=== PATIENT | male | born 1955 | race Caucasian/White ===

== ENCOUNTER → 2021-11-13 07:45 | Outpatient (CLI) | payer MEDICARE, SELFPAY ==
--- NOTE | ~2021-11-13 | US_ITS ---
EXAMINATION: US right upper quadrant EXAM DATE: 11/13/2021 08:08 INDICATION: Right upper quadrant abdominal pain. TECHNIQUE: Multiple grayscale and Doppler images of the abdomen right upper quadrant were obtained (b y a technologist who performed the scan) and subsequently reviewed. There is no prior study for maribell nunn. FINDINGS: The pancreatic head and body are normal in appearance. The pancreatic tail is not visualized. The l iver has normal echogenicity and contour. There are no focal liver lesions identified. There is no evidence of intrahepatic biliary duct dilation. Portal venous flow was seen in the hepatopedal, nor mal direction and has normal Doppler waveform. No right-sided hydronephrosis. Common bile duct measures 3 mm, which is normal. The gallbladder wall is normal in thickness, in cont racted state. No sonographic evidence of pericholecystic fluid. There is no cholelithiases. Technol ogist performing exam reports patient did not demonstrate sonographic Heck's sign. Please note jair t this sign is less reliable in patients who have received pain medication. IMPRESSION: Contracted, otherwise unremarkable gallbladder. Reviewed, dictated and finalized at location B.
== END ==
PROVIDERS: PCP Student in an Organized Health Care Education/Training Program; Visit Provider Student in an Organized Health Care Education/Training Program
DX: R10.11 Right upper quadrant pain (principal)
CPT/HCPCS: 76705

== ENCOUNTER → 2021-11-21 12:51 | Outpatient (CLI) | payer MEDICARE, SELFPAY ==
--- NOTE | ~2021-11-21 | CT_ITS ---
EXAMINATION: CT abdomen pelvis w con EXAM DATE: 11/21/2021 13:19 INDICATION: RUQ pain, leukocytosis. TECHNIQUE: Spiral CT of the abdomen and pelvis was performed following intravenous injection of 100 m L Omnipaque 350. Axial, coronal and sagittal images of the abdomen and pelvis were reviewed. The do se-length product (DLP) for this examination was 560.68 mGy-cm. The exposure was tailored according to patient size (auto mA exposure control), and iterative reconstruction (ASIR) was used as additiona l dose reduction technique. There is no prior study for comparison. FINDINGS: The liver, spleen, adrenal glands and pancreas are unremarkable. The gallbladder is contra cted but otherwise unremarkable. Portal and splenic veins are patent. Kidneys enhance symmetrically . Several left renal cyst measuring up to 2 cm. There is no hydronephrosis. The prostate is unremar kable. The bladder is unremarkable. There is no retroperitoneal or pelvic lymphadenopathy. The appendix is normal. There is moderate colonic diverticulosis. There is no adjacent inflammatory change to suggest diverticulitis. The stomach and small bowel are unremarkable. There is expected a mount of colonic stool. No free intraperitoneal gas. The heart is normal in size. There are no p ericardial or pleural effusions. The lung bases are unremarkable. There is mild lumbar levoscoliosi s. IMPRESSION: 1. Contracted, otherwise unremarkable gallbladder. No acute findings. 2. Moderate colonic diverticulosis Reviewed, dictated and finalized at location A.
[2021-11-21 13:08] LABS: Estimated Glomerular Filt Rate > 60
== END ==
PROVIDERS: PCP Student in an Organized Health Care Education/Training Program; Visit Provider Student in an Organized Health Care Education/Training Program
DX: R10.11 Right upper quadrant pain (principal); D72.829 Elevated white blood cell count, unspecified; K57.30 Diverticulosis of large intestine without perforation or abscess without bleeding
CPT/HCPCS: 74177; Q9967

== ENCOUNTER 2022-12-22 07:15 | Outpatient (CLI) | payer MEDICARE, SELFPAY ==
--- NOTE | ~2022-12-22 | NM_ITS ---
EXAMINATION: NM bone scan whole body DATE: 12/22/2022 11:54 INDICATION: Malignant neoplasm of prostate TECHNIQUE: 5.7 mCi Tc-99m HDP was administered intravenously. Delayed whole-body scintigrams were ob tained. COMPARISON: CT abdomen pelvis dated 11/21/2021. No more recent imaging available for comparison. FINDINGS: Likely degenerative joint centered uptake at the bilateral sternoclavicular and acromioclavicular antonino nts, right 12th costovertebral articulation and at the right ankle. Mild likely enthesopathic uptake along the bilateral greater trochanters. Relatively symmetric small foci of mild uptake along the lef t and right sides of the sternum likely at the costosternal articulations. No other suspicious foci o f abnormal bone uptake to suggest metastatic disease. IMPRESSION: 1. No lesion suspicious for metastatic disease. Reviewed, dictated and finalized at location A.
== END 2022-12-22 07:16 | disposition home or self-care (01) ==
PROVIDERS: PCP Student in an Organized Health Care Education/Training Program; Visit Provider Urology
DX: C61 Malignant neoplasm of prostate (principal)
CPT/HCPCS: 78306; A9503

== ENCOUNTER 2023-01-30 12:29 | Outpatient (CLI) | payer MEDICARE, SELFPAY ==
--- NOTE | ~2023-01-30 | PE_ITS ---
EXAMINATION: PET_PETPSMAST_PT DATE: 01/30/2023 15:10 INDICATION: Prostate cancer. TECHNIQUE: 8.993 mCi of piflufolastat F-18 was administered intravenously. Low dose computed tomograp hy (CT) images were acquired from the base of the brain to the proximal thighs for attenuation correc tion and anatomic localization. Automated exposure control was employed. Dose-length product (DLP) wa s 481 mGy-cm. Positron emission tomography (PET) images were acquired in the same distribution. COMPARISON: CT abdomen and pelvis 11/21/2021, bone scan 12/22/2022 FINDINGS: Head/neck: There are no pathologically enlarged lymph nodes. Chest: There is mild atelectasis bilaterally. A calcified left lung nodule and calcified left hilar a nd mediastinal lymph nodes are consistent with old granulomatous disease. No pleural effusion. The he art size is normal. There are coronary artery calcifications. No pericardial effusion. Abdomen/pelvis/proximal thighs: Calcifications in the liver and spleen are consistent with old granul omatous disease. The gallbladder is contracted. The pancreas, adrenal glands, and right kidney are no rmal. There are cysts in left kidney measuring up to 2.2 cm. There is a 1 mm stone in left kidney. Th e prostate is mildly enlarged. There is increased activity in the prostate, worst in the left periphe ral zone with maximum SUV of 23.5. There is diverticulosis of the colon without evidence of diverticu litis. There are no dilated loops of bowel. The appendix is normal. There are no pathologically enlar ged lymph nodes. There is increased activity in a normal-sized left obturator node with maximum SUV o f 7.7. There is no free intraperitoneal fluid. There is no osseous malignancy. IMPRESSION: 1. Mildly enlarged prostate with increased activity, worst in the left peripheral zone, consistent wi th primary malignancy. 2. Normal sized left obturator lymph node with increased activity, consistent with metastatic disease . Reviewed, dictated and finalized at location A. IMPRESSION: 1. Mildly enlarged prostate with increased activity, worst in the left peripher al zone, consistent with primary malignancy. 2. Normal sized left obturator lymph node with increased activity, consistent w ith metastatic disease.
== END 2023-01-30 12:30 | disposition home or self-care (01) ==
PROVIDERS: PCP Student in an Organized Health Care Education/Training Program; Visit Provider Radiology Radiation Oncology
DX: C61 Malignant neoplasm of prostate (principal); N40.0 Benign prostatic hyperplasia without lower urinary tract symptoms
CPT/HCPCS: 78815; A9595

== ENCOUNTER 2023-02-27 06:33 | Outpatient (CLI) | payer MEDICARE, SELFPAY ==
--- NOTE | ~2023-02-27 | MR_ITS ---
EXAMINATION: MR pelvis wo/w con DATE: 02/27/2023 07:58 INDICATION: TECHNIQUE: MRI of the pelvis was performed without and with 15 mL Multihance intravenous contrast. Fu field sequences of the pelvis included axial and coronal T2-weighted SS FSE, axial, sagittal and co hermelinda 2D FIESTA, axial 2D FIESTA FS, axial SSFSE-IR ANAMARIA, axial dual-echo T1-weighted FSPGR, axial and coronal T1 weighted LAVA, 3D axial T2 Cube, axial diffusion-weighted SE with apparent diffusion coef ficient (ADC) maps. Postcontrast sequences included a time course axial T1-weighted LAVA and sagittal and coronal T1-weighted LAVA. COMPARISON: None. FINDINGS: Prostatomegaly measuring 4.5 similar craniocaudally and 4.6 x 3.7 cm in maximal transaxial dimensions . There is a small region along the midline measuring 2.0 cm craniocaudally and up to 1.3 cm in maxim al [id number] dimensions with no discernible macroscopic T1 hyperintense fat signal between the po sterior margin of the inferior half of the prostate and the anterior wall of the rectum. There is how ever an intact smooth thin low signal intensity plane between the two which does not enhance on postc ontrast imaging. Seminal vesicles appear normal and symmetric. No pathologically enlarged pelvic or i nguinal adenopathy. Bladder is normal. Severe lower lumbar spondylosis. Moderate bilateral sacroiliac osteoarthritis. No suspicious enhancing or T1 hypointense bone lesions identified to suggest metasta tic disease. IMPRESSION: 1. Prostatomegaly consistent with provided history of prostate cancer. No evident metastatic disease. Reviewed, dictated and finalized at location A. IMPRESSION: 1. Prostatomegaly consistent with provided history of prostate cancer. No evide nt metastatic disease.
== END 2023-02-27 06:34 | disposition home or self-care (01) ==
PROVIDERS: PCP Student in an Organized Health Care Education/Training Program; Visit Provider Radiology Radiation Oncology
DX: C61 Malignant neoplasm of prostate (principal)
CPT/HCPCS: 72197; A9577

== ENCOUNTER 2023-07-02 06:50 | Day surgery (SDC) | payer MEDICARE, SELFPAY ==
[2023-06-25 11:00] VITALS: BMI 22.6
[2023-07-02] VITALS (8 sets, daily range): BP systolic 108–136; BP diastolic 57–72; PULSE 62–80; RESP 16–20; TEMP 36.4; O2SAT 97–99
--- NOTE | 2023-07-02 07:27 | WPDHPUPDATE1 ---
History and Physical Update Update Date/Time: 07/02/23 07:27 History and Physical has been reviewed, including an updated exam of the patient. There are NO changes in the patient's condition. Risks, benefits, and alternatives have been discussed and questions answered. Patient agrees to proceed with procedure.
[2023-07-02] MEDS: LIDO 1%/EPINEPHRINE 1:100,000 50 ML VIAL 15 ML INFILTRATE (08:51)
[2023-07-02] MEDS: BUPivacaine HCL 0.5% 10 ML AMP 15 ML INFILTRATE (08:51)
[2023-07-02] MEDS: BACITRACIN OP OINT 3.5 GM TUBE 1 APPLIC XX (08:57)
--- NOTE | 2023-07-02 09:16 | W.PM.PROC2 ---
Procedure Note - Detailed Date of Procedure 07/02/23 Pre-op Diagnosis Back Cyst and Left Buttock Skin Lesion Post-op Diagnosis Same Procedure Performed Excision of mid upper back skin epidermal inclusion cyst with 5cm intermediate layered wound closure. Excision of left buttock skin lesion with 2cm intermediate layered wound closure Surgeon Jay Ramirez MD [employer] Tyra SINGH student Anesthesia Local Indications Patient is a 67-year-old gentleman presented with a enlarging epidermal inclusion cyst in the midback region as well as a skin lesion on the medial aspect of his left buttock. He presents now for excision of both lesions. Findings The back cyst appeared to be consistent with a sebaceous cyst. It measured 4x2x1.5cm. The left buttock skin lesion measured 1x0.5x0.5cm. Intermediate layer skin closure for the back cyst was 5cm and intermediate layered wound closure for the buttock incision was 2cm. Description of Procedure After informed consent was obtained patient brought to the room was placed prone on the operating table. The area the mid upper back and medial left buttock region was then prepped and draped in usual sterile fashion. A time-out was then performed correctly identifying the patient as well as procedures to be performed. Site markings were verified. No antibiotics were given perioperatively. I then proceeded to anesthetize both areas 1% lidocaine mixed with 0.5% Marcaine with some epinephrine. I then started to excise off the mid back cyst initially. A longitudinal elliptical incision was made over the cyst wall utilizing a scalpel. Then with very careful sharp Iris scissor dissection I proceeded to shell out the wall of the cyst from the subcutaneous tissues surrounding it. Once I was down into the subcutaneous tissues be on the cyst wall I then proceeded to excise off the tissue with electrocautery. The specimen measured 4x2x1.5cm. The cyst wall which was non rubber ruptured and the attached ellipse of skin were sent to pathology for examination. I then achieved hemostasis in incision utilizing the cautery. The incision was then irrigated sterile saline solution. An intermediate layered wound closure was then performed. Interrupted 3-0 Vicryl sutures were placed in the subcutaneous tissues to close the space. 3-0 Vicryl deep dermal sutures were then placed as well superficially. The skin edges were then approximated utilizing a interrupted 3-0 nylon sutures placed in a vertical mattress fashion. The length of the intermediate layered wound closure on the back measured 5cm. The incision was then cleaned and then antibiotic ointment and a sterile dressing was applied. I then turned my attention to excising up the skin lesion on the left medial buttock. The area had already been anesthetized as noted above. A transverse elliptical incision was then made with a scalpel deeply down through the dermis of the skin. As the lesion was very small I completed the excision of the skin lesion and a small portion subcutaneous tissues exclusively with scalpel dissection. The specimen measured 1x0.5x0.5cm. It was sent to pathology for examination. Hemostasis was achieved in the incision electrocautery. It was then irrigated sterile saline solution. Interrupted 3-0 Vicryl sutures were used in the deeper subcutaneous tissues to close the space. The skin edges were then approximated utilizing a running subcuticular 4-0 Monocryl suture. The length of the intermediate layered skin closure on the buttock was 2cm. The incision was then cleaned the skin glue was applied. The patient tolerated the procedure well no complications. All sponges, needles, and instrument counts were correct at the end procedure. EBL was _5__cc. The patient was awakened and taken to recovery in stable and satisfactory condition. Implants None Estimated Blood Loss 5 Drains No Packing No Pathology Yes ( Back cyst and le
== END 2023-07-02 09:25 | disposition home or self-care (01) ==
PROVIDERS: PCP Student in an Organized Health Care Education/Training Program; Visit Provider Surgery
PROC: (CPT 21931; principal; 2023-07-02 08:30)
DX: R22.2 Localized swelling, mass and lump, trunk (principal)
CPT/HCPCS: 21931; 21930

== ENCOUNTER 2023-07-02 09:19 | Outpatient (NON) | payer MEDICARE, SELFPAY | END 2023-07-02 09:20 | disposition home or self-care (01) | PROVIDERS: PCP Student in an Organized Health Care Education/Training Program; Visit Provider Surgery | DX: L82.1 Other seborrheic keratosis (principal) | CPT/HCPCS: 88305 ==

== ENCOUNTER 2023-10-01 08:25 | Outpatient (CLI) | payer MEDICARE, SELFPAY ==
--- NOTE | ~2023-10-01 | MR_ITS ---
EXAMINATION: MR pelvis wo/w con DATE: 10/01/2023 09:45 INDICATION: Prostate cancer metastatic to intrapelvic lymph node. TECHNIQUE: Magnetic resonance imaging (MRI) of the pelvis was performed without and with 15 mL MultiH ance intravenous contrast. COMPARISON: Pelvis MRI 02/27/2023, PET CT 01/30/2023 FINDINGS: The prostate is normal in size. There is diverticulosis of the colon without evidence of diverticulit is. There are no pathologically enlarged lymph nodes. There is no free intraperitoneal fluid. There i s diffuse bladder wall thickening, likely secondary to chronic outlet obstruction. There is no osseou s metastatic disease. There is severe lumbar spondylosis. IMPRESSION: 1. No evidence of metastatic disease. Reviewed, dictated and finalized at location A. [employer]
== END 2023-10-01 08:26 | disposition home or self-care (01) ==
PROVIDERS: PCP Student in an Organized Health Care Education/Training Program; Visit Provider Urology
DX: C61 Malignant neoplasm of prostate (principal)
CPT/HCPCS: 72197; A9577

== ENCOUNTER 2024-12-21 12:19 | Outpatient (CLI) | payer MEDICARE, SELFPAY ==
--- NOTE | ~2024-12-21 | DEXA_ITS ---
Bone Density Report Name: HUNTER COLÓN Age: 68 Sex: Male Ethnicity: White Date of : 1955 Indication: screening for osteoporosis; height loss; cancer; Referring Provider: IDALMIS KRISHNA Study: Bone densitometry was performed. Exam Date: December 21, 2024 Accession number: [id number] Bone Density: Region BMD T-score Z-score Classification AP Spine(L1-L4) 0.812 -2.5 -1.6 Osteoporosis Femoral Neck (Left) 0.775 -1.1 0.1 Osteopenia Total Hip (Left) 0.898 -0.9 -0.2 Normal Femoral Neck (Right) 0.714 -1.6 -0.4 Osteopenia Total Hip (Right) 0.876 -1.0 -0.3 Normal Total Hip Mean 0.887 -1.0 -0.3 Normal World Health Organization criteria for BMD impression classify patients as: Normal (T-score at or above -1.0), Osteopenia (T-score between -1.0 and -2.5), or Osteoporosis (T-score at or below -2.5). 10-year Fracture Risk: FRAX not reported because: Some T-score for Spine Total or Hip Total or Femoral Neck at or below -2.5 Clinical Information Provided by Patient: Smokes Has used the following medications: Vitamin D, Calcium Has the following medical conditions: Cancer Patient maximum height was 71 Drinks caffeinated beverages Impression: The patient has osteoporosis, based on the Total Spine T-score. The patient has risk factors, including: smoking. Discussion: INCREASED RISK OF FRACTURE. BONE DENSITY IS UNDESIRABLY LOW AT ONE OR MORE SKELETAL SITES, CONSISTENT WITH OSTEOPOROSIS. This patient's lowest T-score meets the World Health Organization's (WHO) criteria for osteoporosis at one or more sites (T-score -2.5 or below). In untreated patients, the risk of osteoporotic fracture increases approximately two-fold for each 1.0 SD decrease in T-score. Low bone density is not the only risk factor for fracture; also consider factors such as patient's age, frailty or poor health, risk of falling, risk of injury, previous osteoporotic fracture, family history of osteoporosis, cigarette smoking, low body weight, etc. Not everyone with low bone mineral density has osteoporosis; osteomalacia and other metabolic bone disorders should also be considered. Patients who have osteoporosis should be evaluated for specific diseases and conditions (secondary causes) that may cause or contribute to bone loss. The National Osteoporosis Foundation (NOF) recommends pharmacologic intervention for men with BMD at this level (a T-score of -2.5 or below). The patient should follow a healthful lifestyle (good nutrition with adequate calcium and vitamin D, and appropriate weight-bearing exercise). Follow-Up: Consider repeating this study in 2 years to reassess this patient's status, or sooner if there is some new clinical indication. Reported by: HARMEET on 12/21/2024 12:55:00 PM. Reviewed, dictated and finalized at location A.
--- OUTSIDE RECORDS SUMMARY | 2024-12-21 12:34 | XMS_ITS | Clinical Summary ---
Author Organization [place] [id number] [facility] Address [address] [place] [address] Care Team Providers Care Sales And Operations Trainee Name Role Phone Jesus Miller Primary Care Provide r Allergies No known active allergies Medications acetaminophen (TYLENOL) 325 mg tabletIndicatio ns:Fever,Pain Take 2 tablets (650 mg total) by mouth every 4 (four) hours as needed for pain 30 tablet 9 Active OXcarbazepine (TRILEPTAL) 300 mg tablet Take 1 tablet (300 mg total) by mouth 2 (two) times a day 60 tablet 11 9 Active metFORMIN (GLUCOPHAGE) 1,000 mg tabletIndicatio ns:type 2 diabetes mellitus Take 1,000 mg by mouth 2 (two) times a day with meals Active multivitamin with minerals tabletIndicatio ns:Mineral Deficiency Prevention,Arcelia min Deficiency Prevention Take 1 tablet by mouth every morning Active famotidine (PEPCID) 20 mg tabletIndicatio ns:gastroesopha geal reflux disease Take 20 mg by mouth 2 (two) times a day as needed for heartburn Active docusate sodium (COLACE) 100 mg capsuleIndicati ons:constipatio n,Stool Softener Take 1 capsule (100 mg total) by mouth 2 (two) times a day 30 capsule 9 Active Additional Information Patient not taking.Reported on 02/23/2020 oxyCODONE (ROXICODONE) 5 mg immediate release tabletIndicatio ns:Pain Take 1 tablet (5 mg total) by mouth every 4 (four) hours as needed for pain 25 tablet 9 Active Additional Information Patient not taking.Reported on 02/23/2020 sildenafiL (VIAGRA) 100 mg tablet TAKE 1/2 TO 1 TABLET BY MOUTH DAILY NEEDED FOR ERECTILE DYSFUNCTION 3 Active gabapentin (NEURONTIN) 300 mg capsule Take 1 capsule (300 mg total) by mouth daily as needed Active Active Problems Problem Noted Date Diagnosed Date Prostate cancer 02/08/2023 Cancer Staging:Clinical stage from 12/01/2022:Stage ORLY(cT2b, cN1, cM0, PSA: 4.6, Grade Group: 5) - Signed by Uriel Liang MD on 02/09/2023 BMI 25.0-25.9,adult 08/22/2019 Normocytic anemia 05/18/2019 Brain abscess 04/27/2019 Assessment & Plan (04/27/2019 1:56 PM CDT): - Underwent brain abscess drainage with cultures showing Streptococcus intermedius, thomson susceptible. - Source unclear: CT face without signs of sinus or dental infection. Contiguous spread from sinus, oropharyngeal and ear/mastoid ruled out. - Currently on ceftriaxone and metronidazole with clinical improvement. - Patient will need to complete at least 6 weeks of IV antibiotic therapy - Will need a repeat MRI to evaluate the abscess prior to stopping, MRI scheduled on 05/19/[address] Michael. Will reach out to Dr. Michael's office to see if they are comfortable with us moving up the MRI one week. If the MRI shows resolution of abscess and the patient has received 6 weeks of Ceftriaxone and Flagyl then we will stop antibiotics. - Continue Ceftriaxone 2 grams IV every 12 hours and Metronidazole 500 mg po every 6 hours until at least 05/12/19, cannot stop until repeat MRI is reviewed. Drug-induced insomnia 04/27/2019 Assessment & Plan (04/27/2019 1:55 PM CDT): - Per the facility's med list the patient is on 4 mg BID of dexamethasone - Per a call note from Dr. Michael's office from 04/20/19, the patient should be on 2mg bid and taper. 2mg bid x 1 week, 1mg tid in one week, 1mg bid the next week, 1mg daily for a week, then .5 mg daily for a week, then stop. - Will clarify with the facility that he is on the correct taper. Encounter for long-term (current) use of antibio tics 04/01/2019 Assessment & Plan (04/27/2019 1:57 PM CDT): Ceftriaxone: Monitoring weekly CBC and CMP for possibility of rash/eosinophilia and pseudocholelithiasis (gallbladder sludging) or hepatitis. Rarely, ceftriaxone can cause drug fever, hepatitis, neutropenia, thrombocytopenia, hemolytic anemia, cholecystitis, or interstitial nephritis. Metronidazole is associated with GI intolerance, metallic taste, headaches, dark urine. Rarely, it can be associated with seizures, encephalopathy, aseptic meningitis, Wilson-Ricky syndrome, peripheral neuropathy, insomnia, and a disulfiram-like reaction with alcohol. Patients are advised to avoid alcohol while taking the medication. Assessment & Plan (04/04/2019 6:15 PM CDT): Ceftriaxone: Monitoring weekly CBC and CMP for possibility of rash/eosinophilia and pseudocholelithiasis (gallbladder sludging) or hepatitis. Rarely, ceftriaxone can cause drug fever, hepatitis, neutropenia, thrombocytopenia, hemolytic anemia, cholecystitis, or interstitial nephritis. 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 male with history of DM2 who presented with headaches, fever and confusion and found to have rim-enhancing lesion on the brain consistent with brain abscess. Had LP at OSH that showed pleocytosis and elevated protein level, with cultures NGTD. Was transferred to [facility] where he had brain abscess drainage with cultures showing Streptococcus intermedius, which is thomson susceptible. CT face without signs of sinus or dental infection. Unclear source of hematogenous spread. Contiguous spread from sinus, oropharyngeal and ear/mastoid ruled out. Currently on ceftriaxone and metronidazole. Slow clinical improvement. Afebrile with normal WBC. Will favor terminal gauger duration of minimal of 8 weeks. Plan: - c/w ceftriaxone, metronidazole. Given slow to clinically respond will need duration of minimum of 8 weeks. - ID will follow peripherally. Please call with any questions. If plans for discharge, please call before discharge for final recommendations. Chronic bilateral low back pain without sciatica 08/23/2018 Type 2 diabetes mellitus wit hout complication, without long-term current use of insulin 08/23/2018 Immunizations Immunization Administration Dates Next Due Flucelvax Influenza Quad 06/01/2018 Influenza, Quadrivalent, Spl it, Intramuscular 08/17/2016 Influenza, Quadrivalent, Spl it, Preservative Free, Intramuscular 04/29/2016 Influenza, Trivalent, Cell Culture-based MDCK, Preservative Free, Antibiotic Free, Intramuscular 06/01/2018,05/21/2017 Influenza, Trivalent, High D ose, Split, Preservative Free, Intramuscular 05/18/2019 Influenza, Trivalent, IM (MDV) 05/22/2014 Influenza, Trivalent, Preser vative Free, Intramuscular 05/22/2015 Influenza, Unspecified 08/17/2016,2015,05/22/2015,05/22 Pneumococcal Conjugate PCV 13 05/18/2019 Surgical History Surgery Date Site/Laterality Comments TONSILLECTOMY 08/17/1965 - 08/16/1966 Bilateral BRAIN SURGERY 03/30/2019 Brain Abscess CRANIOTOMY 03/30/2019 REDUCTION OF TORSION OF TESTIS Medical History Medical History Date Comments Diabetes mellitus (HCC) Type II Vertigo Type 2 diabetes mellitus (HCC) Brain abscess 03/2019 Chest pain Atypical. Pt sta kiana stress related . Rare occurrence. SOB (shortness of breath) Dyslipidemia diet controlled Prostate cancer (HCC) Family History Medical History Relation Name Comments Cancer Father Early Father Cancer Mother Cancer Paternal Grandmother Breast cancer Sister Cancer Sister Relation Name Status Comments Father Mother Paternal Grandfather Paternal Grandmother Sister Social History Tobacco Use Types Packs/Day Years Used Date Smoking Tobacco: Never Smokeless Tobacco: Never Tobacco Cessation:Counseling Given: Not Answered Alcohol Use Standard Drinks/Week Comments Not Currently 0 (1 standard drink = 0.6 oz pur e alcohol) AUDIT-C Answer Date Recorded Q1: How often do you have a drink containing alc ohol? Never 02/09/2023 Average Number of Drinks Not on file 023 Frequency of Binge Drinking Not on file 01/16 Sex and Gender Information Value Date Recorded Sex Assigned at Not on file Legal Sex Male 9:57 PM CDT Gender Identity Not on file Sexual Orientation Not on file Occupation Industry Job Start Date Job End Date Retired Not on file Not on file Not on file Obstetrics History Last Filed Vital Signs Vital Sign Reading Time Taken Comments Blood Pressure 113/62 02/09/2023 8:27 AM CDT Pulse 59 02/09/2023 8:27 AM CDT Temperature 36.7 C (98 F) 02/09/2023 8:27 AM CDT Respiratory Rate 18 02/09/2023 8:27 AM CDT Oxygen Saturation 97% 02/09/2023 8:27 AM CDT Inhaled Oxygen Concentration - - Weight 75.8 kg (167 lb) 02/09/2023 8:27 AM CDT Height 177.8 cm (5' 10 ) 02/09/2023 8:27 AM CDT Body Mass Index 23.96 02/09/2023 8:27 AM CDT Plan of Treatment Health Maintenance Due Date Last Done Comments Albumin Creatinine Ratio, Urine 1953 Colon Cancer Screening-Colonoscopy 1955 Depression Screening 1955 Hepatitis C Screening 1955 Dilated Eye Exam 1953 Foot Exam 1953 DTaP/Tdap/Td Vaccine (1 - Tdap) 1964 Hepatitis B Screening 12/30/1971 Abdominal Aortic Aneurysm (A AA) Screen 2018 Well Visit 65+ 2018 Hemoglobin A1C 12/13/2019 06/13/2019, 03/17, 03/30/2019 Lipid Panel 08/22/2023 08/22/2022, 06/17/2019 Fall Risk Assessment 02/10/2024 02/09/2023 eGFR 02/10/2024 02/09/2023 Covid-19 Vaccine (5 - 2023-2 5 season) 2024 03/06/2023, 05/23/2021, 11/04/2020, Additional history exists Influenza Vaccine (#1) 2024 , 05/18/2019, 06/01/2018, Additional history exists Pneumococcal vaccine 65+ Completed 07/03/2020, 09/2018 Zoster Vaccine Completed 07/03/2020, 04/17, 05/01/2020 Prostate Cancer Screening-PSA Discontinued 02/09/2023 Medical Devices Implanted Type Area Retail Loss Prevention Specialist Device Identifier Shelf Expiration Date Model / Serial / Lot Magaly Craniomaxillofacial [id number] Crete Neuro Iii 10mm Tab Craniomaxillofacial Low Profile - [id number] Implanted:Qty: 3 on 03/30/2019 by Marshall Michael MD at [facility] Magaly Craniomaxillofacial [id number] / / Wiggins Craniomaxillofacial [id number] Un3 1.5mm 4mm Self Drill Craniomaxillofacial Screw Bone - [id number] Implanted:Qty: 17 on 03/30/2019 by Marshall Michael MD at [facility] Magaly Craniomaxillofacial [id number] / / Integra Quick Keyciences Svetlana [id number] Duragen Plus 2x2in Patch Resorbable Suturable Cranial Dura Graft - [id number] Implanted:Qty: 1 on 06/17/2019 by Marshall Michael MD at [facility] Left: Brain Integra Lifesciences Svetlana [id number] / / Wiggins Craniomaxillofacial [id number] Crete Neuro Iii .4mm 2 Hole Low Profile Bar Tab - [id number] Implanted:Qty: 2 on 06/17/2019 by Marshall Michael MD at [facility] Left: Brain Magaly Craniomaxillofacial [id number] / / Wiggins Craniomaxillofacial [id number] Medpor 7mm Tab Low Profile Cover Eliezer Hole Titanium Sterile - [id number] Implanted:Qty: 1 on 06/17/2019 by Marshall Michael MD at [facility] Left: Brain Wiggins Craniomaxillofacial [id number] / / Magaly Craniomaxillofacial [id number] Crete Neuro 3 1.5mm 4mm Self Drill Axial Stability Screw Bone Latex Free - [id number] Implanted:Qty: 10 on 06/17/2019 by Marshall Michael MD at [facility] Left: Brain Wiggins Craniomaxillofacial [id number] / / Procedures Procedure Name Priority Date/Time Associated Diagnosis Comments EGFR Routine 02/09/2023 11:10 AM CDT Prostate cancer (HCC) PSA, TOTAL AND FREE Routine 02/09/2023 1 1:10 AM CDT Prostate cancer (HCC) LIPID PANEL STAT 06/17/2019 7:04 PM CDT POCT HEMOGLOBIN A1C Routine 06/13/2019 1 2:52 PM CDT from Last 3 Months or Most Recently Relevant to Health Maintenance Results * eGFR (02/09/2023 11:10 AM CDT) eGFR >90 90 - 130 mL/min/1. 73 m2 [facility] Comment: Interpretive Data Reference Interval Normal >/= 90 mL/min/1.73m2 Mildly decreased* 60 - 89 mL/min/1.73m2 Mildly to moderately decreased 45 - 59 mL/min/1.73m2 Moderately to severely decreased 30 - 44 mL/min/1.73m2 Severely decreased 15 - 29 mL/min/1.73m2 Kidney Failure < 15 mL/min/1.73m2 *Relative to young adult level Estimated glomerular filtration rate is determined by the 2020 CKD-EPI equation recommended by the National Kidney Foundation (A Unifying Approach to GFR Estimation: Recommendations of the NKF-ASK Task Force on Reassessing the Inclusion of Race in Diagnosing Kidney Disease, JASN 202). The CKD-EPI equation should not be used for patients with unstable renal function and has not been validated in children and those over 70. Current interpretive data was last reviewed 2021. Blood 02/09/2023 11:1 0 AM CDT 02/09/2023 11:40 AM CDT us Anjum Castro MD LAB BLOOD ORDERABLES F inal Result [facility] Department [place] [address] * (ABNORMAL) PSA, total and free (02/09/2023 11:10 AM CDT) PSA-free 0.6 ng/mL [facility] PSA-Total 6.2(H) <=4.5 ng/mL [facility] PSA-Free/Total Ratio 0.10 [facility] Comment: When Total PSA is in the range of 4.0-10.0 ng/mL: Probability of Cancer fPSA/tPSA ratio 50-59 years 60-69 years >or= 70 years < or = 0.10 49% 58% 65% 0.11 - 0.18 27% 34% 41% 0.19 - 0.25 18% 24% 30% > 0.25 9% 12% 16% ADDITIONAL INFORMATION The testing method is an electrochemiluminescence assay manufactured by [employer] and performed on the Modular or Nuria system. Values obtained with different assay methods or kits may be different and cannot be used interchangeably. Test results cannot be interpreted as absolute evidence for the presence or absence of malignant disease. Test Performed by: [place] [address] Beef Breaker: Joseluis Ford M.D. Ph.D.; CLIA# [id number] Blood 02/09/2023 11:1 0 AM CDT 02/09/2023 11:36 AM CDT us Anjum Castro MD LAB BLOOD ORDERABLES F inal Result [facility] Department [place] [address] * (ABNORMAL) Lipid panel (06/17/2019 7:04 PM CDT) Pathologist [facility] Cholesterol 156 30 - 199 mg/dL [facility] Comment: Interpretive Data Ages < or = 19 years Acceptable: <170 mg/dL Borderline high: 170-199 mg/dL High: >or= 200 mg/dL Ages > or = 20 years Desirable: <200 mg/dL Borderline high: 200-239 mg/dL High: >or= 240 mg/dL Literature References: 1. Expert Panel on Integrated Guidelines for Cardiovascular Health and Risk Reduction in Children and Adolescents. Pediatrics 2011;128:S213 2. NCEP Expert Panel. Circulation 2004;110:227 Current Interpretive Data was last revised on 2018. Triglycerides 123 <=149 mg/dL [facility] Comment: Interpretive Data Ages < or = 9 years Acceptable: <75 mg/dL Borderline high: 75-99 mg/dL High: >or= 100 mg/dL Ages 10 to 20 years Acceptable: <90 mg/dL Borderline high: 90-129 mg/dL High: >or= 130 mg/dL Ages > or = 20 years Desirable: <150 mg/dL Borderline high: 150-199 mg/dL High: 200-499 mg/dL Very high: >or= 499 mg/dL Literature References: 1. Expert Panel on Integrated Guidelines for Cardiovascular Health and Risk Reduction in Children and Adolescents. Pediatrics 2011;128:S213 2. NCEP Expert Panel. Circulation 2004;110:227 Current Interpretive Data was last revised on 2018. HDL 35(L) >=40 mg/dL [facility] Comment: Interpretive Data Ages < or = 19 years Acceptable: >45 mg/dL Borderline low: 40-45 mg/dL Low: <40 mg/dL Ages > or = 20 years Desirable: >or= 60 mg/dL Low: <40 mg/dL Literature References: 1. Expert Panel on Integrated Guidelines for Cardiovascular Health and Risk Reduction in Children and Adolescents. Pediatrics 2011;128:S213 2. NCEP Expert Panel. Circulation 2004;110:227 Current Interpretive Data was last revised on 2018. LDL, calculated 96 <=129 mg/dL [facility] Comment: Interpretive Data Ages < or = 19 years Acceptable: <110 mg/dL Borderline high: 110-129 mg/dL High: >or= 130 mg/dL Ages > or = 20 years Optimal: <100 mg/dL Near optimal: 100-129 mg/dL Borderline high: 130-159 mg/dL High: >160 mg/dL Literature References: 1. Expert Panel on Integrated Guidelines for Cardiovascular Health and Risk Reduction in Children and Adolescents. Pediatrics 2011;128:S213 2. NCEP Expert Panel. Circulation 2004;110:227 Current Interpretive Data was last revised on 2018. Non-HDL Cholesterol 121 mg/dL [facility] Comment: Interpretive Data Ages < or = 19 years Acceptable: <120 mg/dL Borderline high: 120-144 mg/dL High: >145 mg/dL Ages > or = 20 years When triglycerides are >200 mg/dL, Non-HDL cholesterol is a secondary target of therapy with treatment goals that are 30 mg/dL greater than the LDL cholesterol target. Literature References: 1. Expert Panel on Integrated Guidelines for Cardiovascular Health and Risk Reduction in Children and Adolescents. Pediatrics 2011;128:S213 2. NCEP Expert Panel. Circulation 2004;110:227 Current Interpretive Data was last revised on 2018. Chol/HDL ratio 4 [facility] Blood specimen (specimen) 06/17/2019 7:04 PM CDT 06/17/2019 7:22 PM CDT Marshall Michael MD LAB BLOOD ORDERABLES Final Result [facility] Department [place] [address] * (ABNORMAL) POCT hemoglobin A1c (06/13/2019 12:52 PM CDT) Hgb A1C, POC 6.8(H) 4.0 - 6.0 % [facility] Est Average Gluc POC 148 mg/dL [facility] Comment: The ADA recommends reporting an estimated Average Glucose (eAG) with all Hemoglobin A1c results using the equation derived from a study of 507 normal and diabetic adults. Minority populations were underrepresented and children were not included. (Diabetes Care 31:9514-7298, 2008). The eAG is not equivalent to a fasting glucose. Blood specimen (specimen) 06/13/2019 12:52 PM CDT 06/13/2019 12:52 PM CDT us Marshall Michael MD POINT OF CARE TEST ORDERABL ES Final Result [facility] Department [place] [address] from Last 3 Months or Most Recently Relevant to Health Maintenance [place] [place] [address] MEDICARE [facility] MEDICARE [facility] MEDICARE Advance Directives For more information, please contact: [phone] * Full Code (Latest Code Status on File) Date Activated Date Inactivated Comments 06/17/2019 6:30 PM 06/19/2019 5:32 PM * Full Code Date Activated Date Inactivated Comments 03/29/2019 10:36 PM 04/15/2019 11:13 PM Care Teams Sales And Operations Trainee Relationship Specialty Start Date End Date Jesus Miller DO PCP - General 05/12/19
--- OUTSIDE RECORDS SUMMARY | 2024-12-21 12:34 | XMS_ITS | Referral Summary ---
Author Organization [place] [id number] [facility] Address [address] [place] [address] Care Team Providers Care Ultrasonic Welding Machine Operator Name Role Phone Jesus Miller Primary Care [...] (03/29/2019): Added automatically from request for surgery [id number] Assessment & Plan (04/06/2019 7:10 PM CDT): As Jelani Rodriges is a 63 y.o. male with history of DM2 who presented with headaches, fever and confusion and found to have rim-enhancing lesion on the brain consistent with brain abscess. Had LP at OSH that showed pleocytosis and elevated protein level, with cultures NGTD. Was transferred to [facility] where he had brain abscess drainage with cultures showing Streptococcus intermedius, which is thomson susceptible. CT face without signs of sinus or dental infection. Unclear source of hematogenous spread. Contiguous spread from sinus, oropharyngeal and ear/mastoid ruled out. Currently on ceftriaxone and metronidazole. Slow clinical improvement. Afebrile with normal WBC. Will favor terminal superintendent duration of minimal of 8 weeks. Plan: [...] Unspecified 08/17/2016,2015,05/22/2015,05/22 Pneumococcal Conjugate PCV 13 05/18/2019 Social History Tobacco Use Types Packs/Day Years [...] file Not on file Not on file Last Filed Vital Signs Vital Sign Reading [...] 02/09/2023 8:27 AM CDT Plan of Treatment Not on file Medical Devices Implanted Type Area Predatory Animal Exterminator Device Identifier Shelf Expiration Date Model / Serial / Lot [place] Craniomaxillofacial [id number] [place] Neuro Iii 10mm Tab Craniomaxillofacial Low Profile - [id number] Implanted:Qty: 3 on 03/30/2019 by Marshall Michael MD at [facility] Magaly Craniomaxillofacial [id number] / / Magaly Craniomaxillofacial [id number] Un3 1.5mm 4mm Self Drill Craniomaxillofacial Screw Bone - [id number] Implanted:Qty: 17 on 03/30/2019 by Marshall Michael MD at [facility] Craniomaxillofacial [id number] / / Integra ProRadisciences Svetlana [id number] Duragen Plus 2x2in Patch Resorbable Suturable Cranial Dura Graft - [id number] Implanted:Qty: 1 on 06/17/2019 by Marshall Michael MD at [facility] Left: Brain Integra Lifesciences Svetlana [id number] / / Magaly Craniomaxillofacial [id number] [place] Neuro Iii .4mm 2 Hole Low Profile Bar Tab - [id number] Implanted:Qty: 2 on 06/17/2019 by Marshall Michael MD at [facility] Left: Brain Magaly Craniomaxillofacial [id number] / / [place] Craniomaxillofacial [id number] Medpor 7mm Tab Low Profile Cover Blackstone Hole Titanium Sterile - [id number] Implanted:Qty: 1 on 06/17/2019 by Marshall Michael MD at [facility] Left: Brain Magaly Craniomaxillofacial [id number] / / Magaly Craniomaxillofacial [id number] [place] Neuro 3 1.5mm 4mm Self Drill Axial Stability Screw Bone Latex Free - [id number] Implanted:Qty: 10 on 06/17/2019 by Marshall Michael MD at [facility] Left: Brain [place] Craniomaxillofacial [id number] / / Procedures Procedure Name Priority Date/Time [...] 90 - 130 mL/min/1. 73 m2 [facility] Comment: Interpretive Data Reference Interval Normal >/= [...] of Race in Diagnosing Kidney Disease, JASN 2020). The CKD-EPI equation should not be used for patients with unstable renal function and has not been validated in children and those over 70. Current interpretive data was last reviewed 2021. Blood 02/09/2023 11:1 0 AM CDT 02/09/2023 11:40 AM CDT us Anjum Castro MD LAB BLOOD ORDERABLES F inal Result [facility] Department [place] [address] * (ABNORMAL) PSA, total and free (02/09/2023 11:10 AM CDT) [facility] PSA-free 0.6 ng/mL [facility] PSA-Total 6.2(H) <=4.5 ng/mL [facility] PSA-Free/Total Ratio 0.10 [facility] Comment: When Total PSA is in the range of 4.0-10.0 ng/mL: Probability of Cancer fPSA/tPSA ratio 50-59 years 60-69 years >or= 70 years < or = 0.10 49% 58% 65% 0.11 - 0.18 27% 34% 41% 0.19 - 0.25 18% 24% 30% > 0.25 9% 12% 16% ADDITIONAL INFORMATION The testing method is an electrochemiluminescence assay manufactured by [employer] and performed on the Modular or Nuria system. Values obtained with different assay methods or kits may be different and cannot be used interchangeably. Test results cannot be interpreted as absolute evidence for the presence or absence of malignant disease. Test Performed by: [place] [id number] Pharmacy Operations Specialist: Joseluis Ford M.D. Ph.D.; CLIA# [id number] Blood 02/09/2023 11:1 0 AM CDT 02/09/2023 11:36 AM CDT us Anjum Castro MD LAB BLOOD ORDERABLES F inal Result [facility] [place] [address] * (ABNORMAL) Lipid panel (06/17/2019 7:04 PM CDT) Cholesterol 156 30 - 199 mg/dL [facility] Comment: Interpretive Data Ages < or [...] revised on 2018. Triglycerides 123 <=149 mg/dL [facility] Comment: Interpretive Data Ages < or [...] revised on 2018. HDL 35(L) >=40 mg/dL [facility] Comment: Interpretive Data Ages < or [...] on 2018. LDL, calculated 96 <=129 mg/dL [facility] Comment: Interpretive Data Ages < or [...] revised on 2018. Non-HDL Cholesterol 121 mg/dL [facility] Comment: Interpretive Data Ages < or [...] last revised on 2018. Chol/HDL ratio 4 [facility] Blood specimen (specimen) 06/17/2019 7:04 PM CDT 06/17/2019 7:22 PM CDT us Marshall Michael MD LAB BLOOD ORDERABLES Final Result [facility] [place] [address] * (ABNORMAL) POCT hemoglobin A1c (06/13/2019 12:52 PM CDT) Hgb A1C, POC 6.8(H) 4.0 - 6.0 % [facility] Est Average Gluc POC 148 mg/dL [facility] Comment: The ADA recommends reporting an estimated Average Glucose (eAG) with all Hemoglobin A1c results using the equation derived from a study of 507 normal and diabetic adults. Minority populations were underrepresented and children were not included. (Diabetes Care 31:0926-8205, 2008). The eAG is not equivalent to a fasting glucose. Blood specimen (specimen) 06/13/2019 12:52 PM CDT 06/13/2019 12:52 PM CDT Marshall Michael MD POINT OF CARE TEST ORDERABL ES Final Result [facility] [place] [address] from Last 3 Months or Most Recently Relevant to Health Maintenance Insurance AETNA MEDICARE AETNA MEDICARE [facility] MEDICARE Advance Directives For more information, please contact: [phone] * Full Code (Latest Code Status on File) Date Activated Date Inactivated Comments 06/17/2019 6:30 PM 06/19/2019 5:32 PM * Full Code Date Activated Date Inactivated Comments 03/29/2019 10:36 PM 04/15/2019 11:13 PM Care Teams Ultrasonic Welding Machine Operator Relationship Specialty Start Date End Date Jesus Miller DO PCP - General 05/12/19
--- OUTSIDE RECORDS SUMMARY | 2024-12-21 12:34 | XMS_ITS | Clinical Summary ---
Author Organization [facility] Address [address] [place] [address] Care Team Providers Care Varnishing Unit Operator Name Role Phone Jesus Miller DO Primary Care Provider + Allergies No known active allergies Medications gabapentin (NEURONTIN) 300 MG capsule Take 1 capsule (300 mg total) by mouth daily as needed. Active rosuvastatin (CRESTOR) 5 MG tabletIndication s:Type 2 diabetes mellitus without complication, without long-term current use of insulin ([facility]),Elevate d low density lipoprotein (LDL) cholesterol level Take 1 tablet (5 mg total) by mouth nightly at bedtime. 90 tablet 3 4 Active sildenafil (VIAGRA) 100 MG tabletIndication s:Erectile dysfunction, unspecified erectile dysfunction type TAKE 1/2 TO 1 TABLET (50-100 MG TOTAL) BY MOUTH NEEDED FOR ERECTILE DYSFUNCTION 6 tablet 1 4 Active Active Problems Problem Noted Date Diagnosed Date Hyperlipidemia associated wi th type 2 diabetes mellitus ([facility]) 07/06/2024 Prostate cancer ([facility]) 02/08/2023 BMI 25.0-25.9,adult 08/22/2019 Normocytic anemia 05/18/2019 Encounter for long-term (current) use of antibio tics 04/01/2019 Overview (12/18/2020): Last Assessment & Plan: Ceftriaxone: Monitoring weekly CBC and CMP for [...] to avoid alcohol while taking the medication. Chronic bilateral low back pain without sciatica 08/23/2018 Type 2 diabetes mellitus wit hout complication, without long-term current use of insulin ([facility]) 08/23/2018 Resolved Problems Problem Noted Date Diagnosed Date Resolved Date Brain abscess ([facility]) 04/27/201908/17 Overview (05/18/2019): Last Assessment & Plan: - Underwent brain abscess drainage with cultures [...] until repeat MRI is reviewed. Drug-induced insomnia ([facility]) 04/27/2019 12/14/2023 Overview (12/18/2020): Last Assessment & Plan: - Per the facility's med list the [...] that he is on the correct taper. Encounters Date Type Department Care Team Description 10/26/2024 Scan HEALTH INFO SRVCS Scanned, Doc Med Group Dilated Eye Exam (SCAN) 10/12/2024 Scan MG HEALTH INFO SRVCS Scanned, Doc Med Group from Last 3 Months Immunizations Immunization Administration Dates Next Due FLUAD (IIV, Trivalent, 0.5 M L Pre-filled Syringe) 05/02/2024 Flucelvax 6 Months+ (Prefill ed Syringe) 06/01/2018,05/21/2017 Fluzone High Dose - >Age 65 (Prefilled Syringe) 05/31/2022,05/15/2021,04/30/2020,2018 Influenza (Generic) 05/22/2015,05/22/2014 Influenza Adult (Generic) 07/18/2023,09/2018,06/01/2018,2016,04/29/2016 PFIZER COVID-19 (LEE CAP), MRNA, LNP-S, PF, 30 MCG/0.3 ML UMER-SUCROSE, IM 12/23/2021 PFIZER COVID-19 (ORIGINAL FORMULATION, PURPLE CAP) mRNA, LNP-S, PF, 30 MCG/0.3 ML DOSE 03/06/2023,05/23/2021,11/04/2020,2020 PFIZER COVID-19 BIVALENT (12 +) mRNA, LNP-S, PF, 30 MCG/0.3 ML DOSE 03/06/2023,05/31/2022 Pneumococcal (Pneumovax 23) 07/03/2020 Pneumococcal (Prevnar 13) 05/18/2019 Shingrix 07/03/2020,05/01/2020 Zoster (Zostavax) 43233 Unt/0.65Ml 05/01/2020 Family History Medical History Relation Comments Cancer Father Liver Cancer Maternal Grandfather Lung Cancer Maternal Grandmother Lung Cancer Mother Throat Cancer Paternal Grandfather Lung Cancer Paternal Grandmother Lung Relation Status Comments Father Maternal Grandfather Maternal Grandmother Mother Paternal Grandfather Paternal Grandmother Social History Tobacco Use Types Packs/Day Years Used Date Smoking Tobacco: Never Smokeless Tobacco: Never Tobacco Cessation:Counseling Given: Not Answered Alcohol Use Standard Drinks/Week Comments Yes 0 (1 standard drink = 0.6 oz pur e alcohol) Special occasions AUDIT-C Answer Date Recorded Frequency of Alcohol Consumption 2-4 times a mon th 08/23/2018 Average Number of Drinks Not on file 019 Frequency of Binge Drinking Not on file 02/2019 PHQ-2 Answer Date Recorded Patient Health Questionnaire-2 Score 0 12/14/2023 Sex and Gender Information Value Date Recorded Sex Assigned at Not on file Legal Sex Male 11:34 AM PRINCIPAL ANDROID DEVELOPER Gender Identity Not on file Sexual Orientation Not on file Last Filed Vital Signs Vital Sign Reading Time Taken Comments Blood Pressure 120/68 07/06/2024 7:28 AM PRINCIPAL ANDROID DEVELOPER Pulse 72 07/06/2024 7:28 AM PRINCIPAL ANDROID DEVELOPER Temperature 36.5 C (97.7 F) 07/06/2024 7:28 AM PRINCIPAL ANDROID DEVELOPER Respiratory Rate 16 07/06/2024 7:28 AM PRINCIPAL ANDROID DEVELOPER Oxygen Saturation 98% 07/06/2024 7:28 AM PRINCIPAL ANDROID DEVELOPER Inhaled Oxygen Concentration - - Weight 71.1 kg (156 lb 11.2 oz) 07/06/2024 7:28 AM PRINCIPAL ANDROID DEVELOPER Height 177.8 cm (5' 10 ) 07/06/2024 7:28 AM PRINCIPAL ANDROID DEVELOPER Body Mass Index 22.48 07/06/2024 7:28 AM PRINCIPAL ANDROID DEVELOPER Plan of Treatment Upcoming Encounters Date Type Department Care Team (Late st Contact Info) Description 01/03/2025 9:40 AM CDT Office Visit [facility] Family & Internal Medicine [address] [phone] Jesus Miller, [address] [place] [id number] Health Maintenance Due Date Last Done Comments DTaP, Tdap and Td Vaccines (1 - Tdap) 1974 Annual Medicare Wellness Visit 2018 PHQ-2 (Physician [place]) 08/17/2024 12/14/2023 COVID-19 Vaccine ( season) 2024 05/02/2024, 03/06/2023, 03/06/2023, Additional history exists Kidney Health Evaluation 12/15/2024 12/16/2023 Lipid Panel 12/15/2024 12/16/2023, 01/0 01/2023, 01/24/2021, Additional history exists Hemoglobin A1C 01/03/2025 07/06/2024, 04/2 04/2024, 06/12/2023, Additional history exists Diabetes: Retinopathy Eye Exam 10/26/2026 10/26/2024 Colorectal Cancer Screening FIT-DNA (3 Years) 04/28/2027 04/28/2024, 04/28/2024, 01/29/2021 RSV Immunization or 60+ Years (1 - 1-dose 75+ series) 2028 Pneumococcal Vaccine: 50+ Years Completed 07/03/2020, 05/18/2019 Zoster Vaccines Completed 07/03/2020, 04/17, 05/01/2020 Hepatitis C Completed 08/22/2022 Meningococcal B Vaccine Aged Out No l onger eligible based on patient's age to complete this topic Meningococcal Vaccine Aged Out No teodoro apple eligible based on patient's age to complete this topic RSV Immunizations Under 20 Months Aged Out No longer eligible based on patient's age to complete this topic Procedures Procedure Name Priority Date/Time Associated Diagnosis Comments DIABETIC RETINOPATHY EXAM (NEGATIVE)(SCAN ORDER) Routine 10/26/2024 HEMOGLOBIN, GLYCOSYLATED Routine 07/06/2024 Type 2 diabetes mellitus without complication, without long-term current use of insulin ([facility]) COLOGUARD (EXACT SCIENCE) Routine 04/28/2024 1:00 PM CDT Screening for malignant neoplasm of colon LIPID PANEL Routine 12/16/2023 10:04 AM CDT Type 2 diabetes mellitus without complication, without long-term current use of insulin HEPATITIS C ANTIBODY W/RFX TO HCV RNA Routine 08/22/2022 3:05 PM PRINCIPAL ANDROID DEVELOPER Need for hepatitis C screening test from Last 3 Months or Most Recently Relevant to Health Maintenance Results * DIABETIC RETINOPATHY EXAM (NEGATIVE) (10/26/2024) us Doc Med Group Scanned SCANNING Final Resu lt [facility] * HEMOGLOBIN, GLYCOSYLATED (07/06/2024) HGB A1C 6.5 % [facility] 07/06/2024 Jesus Calvo Paul DO LABORATORY Final Re sult [facility] [address] [place] [address], * COLOGUARD (EXACT SCIENCE) (04/28/2024 1:00 PM CDT) COLOGUARD RESULT Negative Negative [employer] (CLIA #:[id number]) Comment: NEGATIVE TEST RESULT. A negative Cologuard result indicates a low likelihood that a colorectal cancer (CRC) or advanced adenoma (adenomatous polyps with more advanced pre-malignant features) is present. The chance that a person with a negative Cologuard test has a colorectal cancer is less than 1 in 1500 (negative predictive value >99.9%) or has an advanced adenoma is less than 5.3% (negative predictive value 94.7%). These data are based on a prospective cross-sectional study of 10,000 individuals at average risk for colorectal cancer who were screened with both Cologuard and colonoscopy. (Diandra Flores al, N Engl J Med 2014;370(14):4497-9164) The normal value (reference range) for this assay is negative. COLOGUARD RE-SCREENING RECOMMENDATION: Periodic colorectal cancer screening is an important part of preventive healthcare for asymptomatic individuals at average risk for colorectal cancer. Following a negative Cologuard result, the [place] [employer] and U.S. Multi-Society Task Force screening guidelines recommend a Cologuard re-screening interval of 3 years. References: [employer] [place] [employer] Guideline for Colorectal Cancer Screening: https://www.cancer.org/cancer/ifdsr-sigsrm-nicoan/tjgbmefds-kpbrsuiug-lbjqoun/ac s-rec ommendations.html.; Maikel DK, Pat CR, Devan PACHECO, Colorectal Cancer Screening: Recommendations for Physicians and Patients from the U.S. Multi-Society Task Force on Colorectal Cancer Screening , Am J Gastroenterology 2017; 112:0138-9124. TEST DESCRIPTION: Composite algorithmic analysis of stool DNA-biomarkers with hemoglobin immunoassay. Quantitative values of individual biomarkers are not reportable and are not associated with individual biomarker result reference ranges. Cologuard is intended for colorectal cancer screening of adults of either sex, 45 years or older, who are at average-risk for colorectal cancer (CRC). Cologuard has been approved for use by the U.S. FDA. The performance of Cologuard was established in a cross sectional study of average-risk adults aged 50-84. Cologuard performance in patients ages 45 to 49 years was estimated by sub-group analysis of near-age groups. Colonoscopies performed for a positive result may find as the most clinically significant lesion: colorectal cancer [4.0%], advanced adenoma (including sessile serrated polyps greater than or equal to 1cm diameter) [20%] or non- advanced adenoma [31%]; or no colorectal neoplasia [45%]. These estimates are derived from a prospective cross-sectional screening study of 10,000 individuals at average risk for colorectal cancer who were screened with both Cologuard and colonoscopy. (Diandra Delong. et al, N Engl J Med 2014;370(14):5188-7870.) Cologuard may produce a false negative or false positive result (no colorectal cancer or precancerous polyp present at colonoscopy follow up). A negative Cologuard test result does not guarantee the absence of CRC or advanced adenoma (pre-cancer). The current Cologuard screening interval is every 3 years. ([employer] [place] [employer] and U.S. Multi-Society Task Force). Cologuard performance data in a 10,000 patient pivotal study using colonoscopy as the reference method can be accessed at the following location: www.[employer].com/results. Additional description of the Cologuard test process, warnings and precautions can be found at www.cologuard.com. STOOL STOOL SPECIMEN / Unknown 04/28/2024 1:00 PM CDT 04/29/2024 10:05 AM CDT Jesus Miller DO BODY FLUIDS AND STOOLS O RDERABLES Final Result [facility] ([facility]) [address] [place] [address], [employer] (CLIA #:[id number]) [address] [place] [address] * (ABNORMAL) LIPID PANEL (12/16/2023 10:04 AM CDT) [facility] CHOLESTEROL 166 <200 MG/DL 12/16/2023 2:59 PM CDT [facility] TRIGLYCERIDES 62 <150 MG/DL 12/16/2023 2:59 PM CDT [facility] HDL 48 >40 MG/DL 12/16/2023 2:59 PM CDT [facility] LDL-C 106(H) <100 MG/DL 12/16/2023 2:59 PM CDT [facility] VLDL CALCULATION 12 5 - 28 MG/DL 12/16/2023 2:59 PM CDT [facility] CHOL/HDL RATIO 3.5 0.0 - 4.0 12/16/2023 2:59 PM CDT [facility] LDL/HDL 2.2(H) 0.41 - 2.13 12/16/2023 2:59 PM CDT [facility] NON HDL CHOLESTEROL 118 <140 MG/DL 12/16/2023 2:59 PM CDT [facility] 12/16/2023 10:0 4 AM CDT us Jesus Miller DO LABORATORY Final Re sult Performing Organization Address City[facility]/ZIP Co de Phone Number [facility] [address] [place] [address], * HEPATITIS C ANTIBODY W/RFX TO HCV RNA ([facility] ONLY) (08/22/2022 3:05 PM PRINCIPAL ANDROID DEVELOPER) HEPATITIS C AB 0.1 0.0 - 0.9 s/co ratio [facility] 1 INTERPRETATION Comment [facility] 1 Comment: Negative Not infected with HCV, unless recent infection is suspected or other evidence exists to indicate HCV infection. 08/22/2022 3:05 PM PRINCIPAL ANDROID DEVELOPER 08/22/2022 Narrative [facility] - 08/23/2022 8:14 AM PRINCIPAL ANDROID DEVELOPER Performed at: 01 - [facility] [address] [id number] Human Resources Benefits Assistant: Hayden Morton PhD, Phone: [phone] us Jesus Miller DO LABORATORY Final Re sult [facility] [address] [place] [address] [facility] 1 from Last 3 Months or Most Recently Relevant to Health Maintenance Insurance [employer] Advance Directives * Full Code (Latest Code Status on File) Date Activated Date Inactivated Comments 03/28/2019 10:07 PM 03/29/2019 11:33 PM Care Teams Varnishing Unit Operator Relationship Specialty Start Date End Date Jesus Miller DO [address] [place] [id number] PCP - General FAMILY PRACTICE 07/19/18
--- OUTSIDE RECORDS SUMMARY | 2024-12-21 12:34 | XMS_ITS ---
Author Organization [facility] [address] [facility] Address [address] [place] [address] Care Team Providers Care Civil Structural Designer Name Role Phone Jesus Miller DO Primary Care Provide r Active Problems Problem Noted Date Diagnosed Date [...] (03/29/2019): Added automatically from request for surgery [id number] Assessment & Plan (04/06/2019 7:10 PM CDT): As Jelani Rodriges is a 63 y.o. male with history of DM2 who presented with headaches, fever and confusion and found to have rim-enhancing lesion on the brain consistent with brain abscess. Had LP at OSH that showed pleocytosis and elevated protein level, with cultures NGTD. Was transferred to [facility] where he had brain abscess drainage with cultures showing Streptococcus intermedius, which is thomson susceptible. CT face without signs of sinus or dental infection. Unclear source of hematogenous spread. Contiguous spread from sinus, oropharyngeal and ear/mastoid ruled out. Currently on ceftriaxone and metronidazole. Slow clinical improvement. Afebrile with normal WBC. Will favor moth exterminator duration of minimal of 8 weeks. Plan: [...] without long-term current use of insulin 08/23/2018 Current Treatment and Therapy Plans No current plan information found. Past Treatment and Therapy Plans No past plan information found. Lifetime Dose Tracking * Chemical Lifetime Dose Automatic Entry Manual Entr y DLP 6,952 mGycm 6,952 mGycm 0 mGycm
== END 2024-12-21 12:20 | disposition home or self-care (01) ==
LOC: ANHIMG 12:24
PROVIDERS: PCP Student in an Organized Health Care Education/Training Program; Visit Provider Urology
DX: M81.0 Age-related osteoporosis without current pathological fracture (principal); M85.89 Other specified disorders of bone density and structure, multiple sites; Z79.818 Long term (current) use of other agents affecting estrogen receptors and estrogen levels
CPT/HCPCS: 77080

== ENCOUNTER 2025-03-20 14:29 | Outpatient (CLI) | payer MEDICARE, SELFPAY ==
--- NOTE | ~2025-03-20 | CT_ITS ---
CT of the Abdomen and Pelvis: Indication: Malignancy with hormone sensitive status Technique: 2.5 mm axial scans were obtained through the abdomen and pelvis following intravenous adm inistration of 100 cc of Omnipaque 350. Dose reduction technique was used on this scan by utilizing a utomated exposure control and iterative reconstruction technique. The dose-length product (DLP) was 2 88.12 mGy-cm. COMPARISON: 11/21/2021 Findings: Scans through the lung bases are unremarkable. The liver, spleen, pancreas, gallbladder, adrenals and kidneys are within normal limits. No evidence of aortic aneurysm. No lymphadenopathy. No bowel obstruction or bowel wall thickening. There is no evidence to suggest acute appendicitis. Images through the pelvis were performed. Urinary bladder wall thickening is probably due to underdis tention. Prostate gland fiducial markers are present. No pelvic mass evident. No ascites. Impression: No evidence of active malignancy or metastatic disease. Reviewed, dictated and finalized at [facility]. Impression: No evidence of active malignancy or metastatic disease.
--- OUTSIDE RECORDS SUMMARY | 2025-03-20 14:40 | XMS_ITS | Referral Summary ---
Author Organization [place] [id number] [facility] Address [address] [place] [address] Care Team Providers Care Systems Trainer Name Role Phone Jesus Miller Primary Care [...] (03/29/2019): Added automatically from request for surgery [id number] Assessment & Plan (04/06/2019 7:10 PM CDT): As Jelani Rodriges is a 63 y.o. male with history of DM2 who presented with headaches, fever and confusion and found to have rim-enhancing lesion on the brain consistent with brain abscess. Had LP at OSH that showed pleocytosis and elevated protein level, with cultures NGTD. Was transferred to [facility] where he had brain abscess drainage with cultures showing Streptococcus intermedius, which is thomson susceptible. CT face without signs of sinus or dental infection. Unclear source of hematogenous spread. Contiguous spread from sinus, oropharyngeal and ear/mastoid ruled out. Currently on ceftriaxone and metronidazole. Slow clinical improvement. Afebrile with normal WBC. Will favor terminal block assembler duration of minimal of 8 weeks. Plan: [...] 8:27 AM CDT Height 177.8 cm (5' 10) 02/09/2023 8:27 AM CDT Body Mass Index 23.96 02/09/2023 8:27 AM CDT Plan of Treatment Not on file Medical Devices Implanted Type Area Ob Nurse Device Identifier Shelf Expiration Date Model / Serial / Lot [place] Craniomaxillofacial [id number] [place] Neuro Iii 10mm Tab Craniomaxillofacial Low Profile - [id number] Implanted:Qty: 3 on 03/30/2019 by Marshall Michael MD at [facility] [employer]cott Craniomaxillofacial [id number] / / Magaly Craniomaxillofacial [id number] Un3 1.5mm 4mm Self Drill Craniomaxillofacial Screw Bone - [id number] Implanted:Qty: 17 on 03/30/2019 [facility]ax[facility]acial [id number] / / Integra Umii Productsciences Svetlana [id number] Duragen Plus 2x2in Patch Resorbable Suturable Cranial Dura Graft - [id number] Implanted:Qty: 1 on 06/17/2019 by Marshall Michael MD at [facility] Left: Brain Integra Lifesciences Svetlana [id number] / / Magaly Craniomaxillofacial [id number] [place] Neuro Iii .4mm 2 Hole Low Profile Bar Tab - [id number] Implanted:Qty: 2 on 06/17/2019 by Marshall Michael MD at [facility] Left: Brain Magaly Craniomaxillofacial [id number] / / Magaly Craniomaxillofacial [id number] Medpor 7mm Tab Low Profile Cover [place] Hole Titanium Sterile - [id number] Implanted:Qty: 1 on 06/17/2019 by Marshall Michael MD at [facility] Left: Brain Magaly Craniomaxillofacial [id number] / / Wolcott Craniomaxillofacial [id number] [place] Neuro 3 1.5mm 4mm Self Drill Axial Stability Screw Bone Latex Free - [id number] Implanted:Qty: 10 on 06/17/2019 by Marshall Michael MD at [facility] Left: Brain Magaly Craniomaxillofacial [id number] / / Procedures Procedure Name Priority Date/Time [...] F inal Result [facility] Department [place] [address] * (ABNORMAL) PSA, total and free (02/09/2023 11:10 AM CDT) [facility] PSA-free 0.6 ng/mL [facility] PSA-Total 6.2(H) <=4.5 ng/mL [facility] PSA-Free/Total Ratio 0.10 [facility] Comment: When Total PSA is in the [...] absence of malignant disease. Test Performed by: [place] [id number] Cotton Sampler: Joseluis Ford M.D. Ph.D.; CLIA# [id number] Blood 02/09/2023 11:1 0 AM CDT 02/09/2023 11:36 AM CDT us Anjum Castro MD LAB BLOOD ORDERABLES F inal Result [facility] Department [place] [address] * (ABNORMAL) Lipid panel (06/17/2019 7:04 PM CDT) Cholesterol 156 30 - 199 mg/dL [facility] Comment: Interpretive Data Ages < or = [...] revised on 2018. Triglycerides 123 <=149 mg/dL [facility] Comment: Interpretive Data Ages < or = [...] on 2018. HDL 35(L) >=40 mg/dL [facility] Comment: Interpretive Data Ages < or = [...] 2018. LDL, calculated 96 <=129 mg/dL [facility] Comment: Interpretive Data Ages < or = [...] revised on 2018. Non-HDL Cholesterol 121 mg/dL [facility] Comment: Interpretive Data Ages < or = [...] last revised on 2018. Chol/HDL ratio 4 [facility] Blood specimen (specimen) 06/17/2019 7:04 PM CDT 06/17/2019 7:22 PM CDT us Marshall Michael MD LAB BLOOD ORDERABLES Final Result [facility] Department [place] [address] * (ABNORMAL) POCT hemoglobin A1c (06/13/2019 12:52 PM CDT) Hgb A1C, POC 6.8(H) 4.0 - 6.0 % [facility] Est Average Gluc POC 148 mg/dL [facility] Comment: The ADA recommends reporting an estimated Average Glucose (eAG) with all Hemoglobin A1c results using the equation derived from a study of 507 normal and diabetic adults. Minority populations were underrepresented and children were not included. (Diabetes Care 31:7367-4681, 2008). The eAG is not equivalent to a fasting glucose. Blood specimen (specimen) 06/13/2019 12:52 PM CDT 06/13/2019 12:52 PM CDT Marshall Michael MD POINT OF CARE TEST ORDERABL ES Final Result [facility] Department [place] [address] from Last 3 Months or Most Recently Relevant to Health Maintenance Insurance A[employer] MEDICARE AETNA MEDICARE [facility] MEDIC[facility] Advance Directives For more information, please contact: [phone] * Full Code (Latest Code Status on File) Date Activated Date Inactivated Comments 06/17/2019 6:30 PM 06/19/2019 5:32 PM * Full Code Date Activated Date Inactivated Comments 03/29/2019 10:36 PM 04/15/2019 11:13 PM Care Teams Systems Trainer Relationship Specialty Start Date End Date Jesus Miller DO PCP - General 05/12/19
--- OUTSIDE RECORDS SUMMARY | 2025-03-20 14:40 | XMS_ITS | Clinical Summary ---
Author Organization [place] [id number] [facility] Address [address] [place] [address] Care Team Providers Care Food Or Baggage Handling Rampman Name Role Phone Jesus Miller Primary Care [...] (03/29/2019): Added automatically from request for surgery [id number] Assessment & Plan (04/06/2019 7:10 PM CDT): As Jelani Rodriges is a 63 y.o. male with history of DM2 who presented with headaches, fever and confusion and found to have rim-enhancing lesion on the brain consistent with brain abscess. Had LP at OSH that showed pleocytosis and elevated protein level, with cultures NGTD. Was transferred to [facility] where he had brain abscess drainage with cultures showing Streptococcus intermedius, which is thomson susceptible. CT face without signs of sinus or dental infection. Unclear source of hematogenous spread. Contiguous spread from sinus, oropharyngeal and ear/mastoid ruled out. Currently on ceftriaxone and metronidazole. Slow clinical improvement. Afebrile with normal WBC. Will favor half-way duration of minimal of 8 weeks. Plan: [...] Type II Vertigo Type 2 diabetes mellitus Brain abscess 03/2019 Chest pain Atypical. Pt sta kiana stress related. Rare occurrence. SOB (shortness of breath) Dyslipidemia [...] 11/04/2020, Additional history exists Influenza Vaccine (#1) 2025 , 05/18/2019, 06/01/2018, Additional history exists Pneumococcal vaccine 65+ Completed 07/03/2020, 09/2018 Zoster Vaccine Completed 07/03/2020, 04/17, 05/01/2020 Prostate Cancer Screening-PSA Discontinued 02/09/2023 Medical Devices Implanted Type Area Granite Countertop Installer Device Identifier Shelf Expiration Date Model / Serial / Lot [place] Craniomaxillofacial [id number] [place] Neuro Iii 10mm Tab Craniomaxillofacial Low Profile - [id number] Implanted:Qty: 3 on 03/30/2019 by Marshall Michael MD at [facility] [employer] Craniomaxillofacial [id number] / / Magaly Craniomaxillofacial [id number] Un3 1.5mm 4mm Self Drill Craniomaxillofacial Screw Bone - [id number] Implanted:Qty: 17 on 03/30/2019 by Marshall Michael MD at [facility] Magaly Craniomaxillofacial [id number] / / Integra Frugotonciences Svetlana [id number] Duragen Plus 2x2in Patch Resorbable Suturable Cranial Dura Graft - [id number] Implanted:Qty: 1 on 06/17/2019 by Marshall Michael MD at [facility] Left: Brain Integra Lifesciences Svetlana [id number] / / Magaly Craniomaxillofacial [id number] [place] Neuro Iii .4mm 2 Hole Low Profile Bar Tab - [id number] Implanted:Qty: 2 on 06/17/2019 by Marshall Michael MD at [facility] Left: Brain Comfrey Craniomaxillofacial [id number] / / Magaly Craniomaxillofacial [id number] Medpor 7mm Tab Low Profile Cover [place] Hole Titanium Sterile - [id number] Implanted:Qty: 1 on 06/17/2019 by Marshall Michael MD at [facility] Left: Brain Comfrey Craniomaxillofacial [id number] / / Magaly Craniomaxillofacial [id number] [place] Neuro 3 1.5mm 4mm Self Drill Axial Stability Screw Bone Latex Free - [id number] Implanted:Qty: 10 on 06/17/2019 by Marshall Michael MD at [facility] Left: Brain Magaly Craniomaxillofacial [id number] / / Procedures Procedure Name Priority Date/Time [...] F inal Result [facility] Department [place] [address] * (ABNORMAL) PSA, total and free (02/09/2023 11:10 AM CDT) PSA-free 0.6 ng/mL [facility] PSA-Total 6.2(H) <=4.5 ng/mL [facility] PSA-Free/Total Ratio 0.10 [facility] Comment: When Total PSA is in the range of 4.0-10.0 ng/mL: Probability of Cancer fPSA/tPSA ratio 50-59 years 60-69 years >or= 70 years < or = 0.10 49% 58% 65% 0.11 - 0.18 27% 34% 41% 0.19 - 0.25 18% 24% 30% > 0.25 9% 12% 16% ADDITIONAL INFORMATION The testing method is an electrochemiluminescence assay manufactured by [employer] and performed on the Modular or Nuria system. Values obtained with different assay methods or kits may be different and cannot be used interchangeably. Test results cannot be interpreted as absolute evidence for the presence or absence of malignant disease. Test Performed by: [place] [address] Gate Guard: Joseluis Ford M.D. Ph.D.; CLIA# [id number] Blood 02/09/2023 11:1 0 AM CDT 02/09/2023 11:36 AM CDT us Anjum Castro MD LAB BLOOD ORDERABLES F inal Result [facility] Department [place] [address] * (ABNORMAL) Lipid panel (06/17/2019 7:04 PM CDT) Pathologist [facility] Cholesterol 156 30 - 199 mg/dL [facility] Comment: Interpretive Data Ages < or [...] revised on 2018. Triglycerides 123 <=149 mg/dL [facility] Comment: Interpretive Data Ages < or [...] revised on 2018. HDL 35(L) >=40 mg/dL [facility] Comment: Interpretive Data Ages < or [...] on 2018. LDL, calculated 96 <=129 mg/dL [facility] Comment: Interpretive Data Ages < or [...] revised on 2018. Non-HDL Cholesterol 121 mg/dL [facility] Comment: Interpretive Data Ages < or [...] last revised on 2018. Chol/HDL ratio 4 [facility] Blood specimen (specimen) 06/17/2019 7:04 PM CDT 06/17/2019 7:22 PM CDT Marshall Michael MD LAB BLOOD ORDERABLES Final Result [facility] Department [place] [address] * (ABNORMAL) POCT hemoglobin A1c (06/13/2019 12:52 PM CDT) Hgb A1C, POC 6.8(H) 4.0 - 6.0 % [facility] Est Average Gluc POC 148 mg/dL [facility] Comment: The ADA recommends reporting an estimated Average Glucose (eAG) with all Hemoglobin A1c results using the equation derived from a study of 507 normal and diabetic adults. Minority populations were underrepresented and children were not included. (Diabetes Care 31:6611-4902, 2008). The eAG is not equivalent to a fasting glucose. Blood specimen (specimen) 06/13/2019 12:52 PM CDT 06/13/2019 12:52 PM CDT Marshall Michael MD POINT OF CARE TEST ORDERABL ES Final Result [facility] Department [place] [address] from Last 3 Months or Most Recently Relevant to Health Maintenance Insurance [facility] MEDICARE AETNA MEDICARE [facility] MEDICARE Advance Directives For more information, please contact: [phone] * Full Code (Latest Code Status on File) Date Activated Date Inactivated Comments 06/17/2019 6:30 PM 06/19/2019 5:32 PM * Full Code Date Activated Date Inactivated Comments 03/29/2019 10:36 PM 04/15/2019 11:13 PM Care Teams Food Or Baggage Handling Rampman Relationship Specialty Start Date End Date Jesus Miller DO PCP - General 05/12/19
--- OUTSIDE RECORDS SUMMARY | 2025-03-20 14:40 | XMS_ITS | Clinical Summary ---
Author Organization [facility] Address Replaced by [facility] [address] [place] [address] Care Team Providers Care Director Speech Name Role Phone Jesus Miller Primary Care Provider + Allergies No known active allergies Medications gabapentin (NEURONTIN) 300 MG capsule Take 1 capsule (300 mg total) by mouth daily as needed. Active sildenafil (VIAGRA) 100 MG tabletIndication s:Erectile dysfunction, unspecified erectile dysfunction type TAKE 1/2 TO 1 TABLET (50-100 MG TOTAL) BY MOUTH NEEDED FOR ERECTILE DYSFUNCTION 6 tablet 1 4 Active rosuvastatin (CRESTOR) 5 MG tabletIndication s:Type 2 diabetes mellitus without complication, without long-term current use of insulin ([facility]),Hyperli pidemia associated with type 2 diabetes mellitus ([facility]) Take 2 tablets (10 mg total) by mouth nightly at bedtime. 90 tablet 3 5 Active alendronate (FOSAMAX) 70 MG tabletIndication s:Osteoporosis without current pathological fracture, unspecified osteoporosis type Take 1 tablet (70 mg total) by mouth every 7 days. Take with 8 oz of water. Administer first thing in the morning and 30 minutes before the first food, beverage (except plain water), or other medication(s) of the day. Do not take with mineral water or with other beverages. Stay upright (not to lie down) for =30 minutes and until after first food of the day. 4 tablet 2 5 Active Active Problems Problem Noted Date Diagnosed Date Osteoporosis without current pathological fracture, unspecified osteoporosis type 01/03/2025 Hyperlipidemia associated wi th type 2 diabetes mellitus ([facility]) 07/06/2024 Prostate cancer ([facility]) 02/08/2023 BMI 25.0-25.9,adult 08/22/2019 Normocytic anemia 05/18/2019 [...] complication, without long-term current use of insulin ([facility]) 08/23/2018 Resolved Problems Problem Noted Date Diagnosed Date Resolved Date Brain abscess ([facility]) 04/27/201908/17 Overview (05/18/2019): Last Assessment & Plan: [...] until repeat MRI is reviewed. Drug-induced insomnia ([facility]) 04/27/2019 12/14/2023 Overview (12/18/2020): Last Assessment & [...] Encounters Date Type Department Care Team Description 01/11/2025 Results Follow-Up [facility] [address] [address] Jesus Miller, DO HEMOGLOBIN, GLYCOSYLATED, PHOSPHORUS, INORGANIC PHOSPHATE, LIPID PANEL, Additional followed-up results: 5 01/03/2025 9:40 AM CDT Office Visit [facility] [address] [address] Jesus Miller, Diabetes (6 month follow up, ); Perspiration (The patient states he has had hot flashes. The patient states he recently finished his injections for prostate cancer. Patient would like to discuss. ) 01/03/2025 Travel 12/30/2024 Scan [employer] SRVCS Scanned, [facility] 12/30/2024 Patient Outreach [facility] [address] [address] Jesus Miller, DO Pre-visit Gap Closure 12/21/2024 Scan [employer] SRVCS Scanned, [facility] Bone Density Report (SCAN) from Last 3 Months Immunizations Immunization Administration Dates Next Due FLUAD (IIV, Trivalent, 0.5 M L Pre-filled Syringe) 05/02/2024 Flucelvax 6 Months+ (Prefill ed Syringe) 06/01/2018,05/21/2017 Fluzone High Dose - >Age 65 (Prefilled Syringe) 05/31/2022,05/15/2021,04/30/2020,2018 Influenza (Generic) 05/22/2015,05/22/2014 Influenza Adult (Generic) 07/18/2023,09/2018,06/01/2018,2016,04/29/2016 PFIZER COVID-19 (12+) MRNA, LNP-S, PF, UMER-SUCROSE, 30 MCG/0.3 ML (COMIRNATY) 01/03/2025 PFIZER COVID-19 (LEE CAP), MRNA, LNP-S, PF, 30 MCG/0.3 ML UMER-SUCROSE, IM 12/23/2021 PFIZER COVID-19 (ORIGINAL FORMULATION, PURPLE CAP) mRNA, LNP-S, PF, 30 MCG/0.3 ML DOSE 03/06/2023,05/23/2021,11/04/2020,2020 PFIZER COVID-19 BIVALENT (12 +) mRNA, LNP-S, PF, 30 MCG/0.3 ML DOSE 03/06/2023,05/31/2022 Pneumococcal (Pneumovax 23) 07/03/2020 Pneumococcal (Prevnar 13) 05/18/2019 Shingrix 07/03/2020,05/01/2020 Zoster (Zostavax) [address] Unt/0.65Ml 05/01/2020 Family History Medical History Relation Comments Cancer Father Liver Cancer Maternal Grandfather Lung Cancer Maternal Grandmother Lung Cancer Mother Throat Cancer Paternal Grandfather Lung Cancer Paternal Grandmother Lung Relation Status Comments Father Maternal Grandfather Maternal Grandmother Mother Paternal Grandfather Paternal Grandmother Social History Tobacco Use Types Packs/Day Years Used Date Smoking Tobacco: Never Smokeless Tobacco: Never Tobacco Cessation:Counseling Given: Yes Alcohol Use Standard Drinks/Week Comments Yes 0 (1 standard drink = 0.6 oz pur e alcohol) Special occasions AUDIT-C Answer Date Recorded Frequency of Alcohol Consumption 2-4 times a mon 08/23/2018 Average Number of Drinks Not on file 019 Frequency of Binge Drinking Not on file 02/2019 PHQ-2 Answer Date Recorded Patient Health Questionnaire-2 Score 0 01/03/2025 Sex and Gender Information Value Date Recorded Sex Assigned at Male 01/03/2025 10:51 AM CDT Legal Sex Male 11:34 AM GREETER Gender Identity Male 01/03/2025 10:51 AM CDT Sexual Orientation Not on file Last Filed Vital Signs Vital Sign Reading Time Taken Comments Blood Pressure 96/58 01/03/2025 9:59 AM CDT Pulse 67 01/03/2025 9:59 AM CDT Temperature 36.4 C (97.5 F) 01/03/2025 9:59 AM CDT Respiratory Rate 16 01/03/2025 9:59 AM CDT Oxygen Saturation 98% 01/03/2025 9:59 AM CDT Inhaled Oxygen Concentration - - Weight 71.4 kg (157 lb 8 oz) 01/03/2025 9:59 AM CDT Height 177.8 cm (5' 10) 01/03/2025 9:59 AM CDT Body Mass Index 22.6 01/03/2025 9:59 AM CDT Plan of Treatment Health Maintenance Due Date Last Done Comments Annual Medicare Wellness Visit 2018 Hemoglobin A1C 07/06/2025 01/03/2025, 06/18, 12/14/2023, Additional history exists DTaP, Tdap and Td Vaccines (1 - Tdap) 01/03/2026 Postponed from 1972 (No Insurance Coverage) Kidney Health Evaluation 01/03/2026 01/03/2025 Lipid Panel 01/03/2026 01/03/2025, 05/0 08/2023, 08/22/2022, Additional history exists Diabetes: Retinopathy Eye Exam 10/26/2026 10/26/2024 Dexa Scan (General) 12/21/2026 12/21/2024, 12/21/2024, 12/21/2024, Additional history exists Colorectal Cancer Screening FIT-DNA (3 Years) 04/28/2027 04/28/2024, 04/28/2024, 01/29/2021 RSV Immunization or 60+ Years (1 - 1-dose 75+ series) 2028 Pneumococcal Vaccine: 50+ Years Completed 07/03/2020, 05/18/2019 Zoster Vaccines Completed 07/03/2020, 04/17, 05/01/2020 Hepatitis C Completed 08/22/2022 COVID-19 Vaccine Completed 01/03/2025, , 03/06/2023, Additional history exists PHQ-2 (Physician [place]) Completed 01/03/2025 Meningococcal B Vaccine Aged Out No l onger eligible based on patient's age to complete this topic Meningococcal Vaccine Aged Out No teodoro apple eligible based on patient's age to complete this topic RSV Immunizations Under 20 Months Aged Out No longer eligible based on patient's age to complete this topic Procedures Procedure Name Priority Date/Time Associated Diagnosis Comments VITAMIN D, 25 OH Routine 01/03/2025 10:5 9 AM CDT Type 2 diabetes mellitus without complication, without long-term current use of insulin ([facility]) Hyperlipidemia associated with type 2 diabetes mellitus ([facility]) Osteoporosis without current pathological fracture, unspecified osteoporosis type ALBUMIN URINE RANDOM W/CREATININE Routine 01/03/2025 10:59 AM CDT Type 2 diabetes mellitus without complication, without long-term current use of insulin (CMS/HCC HHS/HCC) Hyperlipidemia associated with type 2 diabetes mellitus (CMS/HCC HHS/HCC) CBC W/DIFF AUTOMATED Routine 01/03/2025 10:59 AM CDT Type 2 diabetes mellitus without complication, without long-term current use of insulin ([facility] HHS/HCC) Hyperlipidemia associated with type 2 diabetes mellitus (CMS/HCC HHS/HCC) COMPREHENSIVE METABOLIC PANEL Routine 01/03/2025 10:59 AM CDT Type 2 diabetes mellitus without complication, without long-term current use of insulin (CMS/HCC HHS/HCC) Hyperlipidemia associated with type 2 diabetes mellitus (CMS/HCC HHS/HCC) TSH W/REFLEX Routine 01/03/2025 10:59 AM CDT Type 2 diabetes mellitus without complication, without long-term current use of insulin ([facility] H[facility]/HCC) Hyperlipidemia associated with type 2 diabetes mellitus (CMS/HCC HHS/HCC) LIPID PANEL Routine 01/03/2025 10:59 AM CDT Type 2 diabetes mellitus without complication, without long-term current use of insulin (CMS/HCC HHS/HCC) Hyperlipidemia associated with type 2 diabetes mellitus ([facility] H[facility]/HCC) PHOSPHORUS, INORGANIC PHOSPHATE Routine 01/03/2025 10:59 AM CDT Type 2 diabetes mellitus without complication, without long-term current use of insulin ([facility] H[facility]/HCC) Hyperlipidemia associated with type 2 diabetes mellitus ([facility] HHS/HCC) Osteoporosis without current pathological fracture, unspecified osteoporosis type COLLECTION VENOUS BLOOD VENIPUNCTURE Routine 01/03/2025 10:44 AM CDT Type 2 diabetes mellitus without complication, without long-term current use of insulin (CMS/HCC HHS/HCC) Hyperlipidemia associated with type 2 diabetes mellitus ([facility]CC HHS/HCC) COLLECT.CAPILLARY (FNGR,HEEL,EAR) Routine 01/03/2025 9:33 AM CDT Type 2 diabetes mellitus without complication, without long-term current use of insulin ([facility]/HCC HHS/HCC) HEMOGLOBIN, GLYCOSYLATED Routine 01/03/2025 Type 2 diabetes mellitus without complication, without long-term current use of insulin ([facility] HHS/HCC) BONE DENSITY GENERIC (SCAN ORDER) 12/21/2024 BONE DENSITY GENERIC (SCAN ORDER) 12/21/2024 BONE DENSITY GENERIC (SCAN ORDER) 12/21/2024 DIABETIC RETINOPATHY EXAM (NEGATIVE)(SCAN ORDER) Routine 10/26/2024 COLOGUARD (EXACT SCIENCE) Routine 04/28/2024 1:00 PM CDT Screening for malignant neoplasm of colon HEPATITIS C ANTIBODY W/RFX TO HCV RNA Routine 08/22/2022 3:05 PM GREETER Need for hepatitis C screening test from Last 3 Months or Most Recently Relevant to Health Maintenance Results * TSH W/REFLEX (01/03/2025 10:59 AM CDT) TSH 1.044 0.358 - 3.740 uIU/ML 01/04/2025 10:31 AM CDT [facility] 01/03/2025 10:5 9 AM CDT Jesus Miller DO LABORATORY Final Re sult [facility] [address] [place] [address], [place] [phone] * ALBUMIN URINE RANDOM W/CREATININE (01/03/2025 10:59 AM CDT) MICROALBUMIN (U) 10.7 <20 MG/L 01/04/20 7:58 PM CDT [facility] CREATININE RANDOM (U) 167.1 MG/DL 01/03/2025 7:58 PM CDT [facility] ALBUMIN/CREAT RATIO 6.4 <30 MG/G 01/03/2025 7:58 PM CDT [facility] URINE SPECIMEN / Unknown 01/03/2025 10:59 AM CDT Jesus Miller DO URINE ORDERABLES Final R esult [facility] [place] [facility] [address] [place] [address], [place] [phone] * (ABNORMAL) COMPREHENSIVE METABOLIC PANEL (01/03/2025 10:59 AM CDT) SODIUM S/P/B 143 136 - 145 MMOL/L 01/04/2025 10:34 AM CDT [facility] POTASSIUM S/P/B 4.5 3.5 - 5.1 MMOL/L 01/04/2025 10:34 AM CDT [facility] CHLORIDE S/P/B 104 98 - 107 MMOL/L 01/04/2025 10:34 AM CDT [facility] CO2 31.6 21 - 32 MMOL/L 01/04/2025 10:34 AM CDT [facility] GLUCOSE 117(H) 70 - 99 MG/DL 01/04/2025 10:31 AM T [facility] BUN 12 7 - 18 MG/DL 01/04/2025 10:31 AM [facility] CREATININE S/P/B 0.57(L) 0.70 - 1.30 MG/DL 01/04/2025 10:31 AM T [facility] CALCIUM S/P/B 9.3 8.4 - 10.5 MG/DL 01/04/2025 10:31 AM CDT [facility] BILIRUBIN TOTAL S/P/B 0.2 0.2 - 1.0 MG/DL 01/04/2025 10:31 AM [facility] ALKALINE PHOSPHATASE S/P/B 78 45 - 115 U/L 01/04/2025 10:31 AM T [facility] AST 13(L) 15 - 37 U/L 01/04/2025 10:44 AM CDT [facility] ALT 23 16 - 63 U/L 01/04/2025 10:31 AM [facility] TOTAL PROTEIN S/P/B 7.0 6.4 - 8.2 G/DL 01/04/2025 10:31 AM [facility] ALBUMIN S/P/B 3.9 3.4 - 5.0 G/DL 01/04/2025 10:31 AM [facility] ANION GAP 7.4 5 - 15 MMOL/L 01/04/2025 10:34 AM T [facility] Comment:REFERENCE RANGE NOT ESTABLISHED OSMOLALITY (CALC) 297 MOSM/KG 025 10:34 AM [facility] Comment:REFERENCE RANGE NOT ESTABLISHED GFR ESTIMATE >90 >90 ML/MIN/1. 73 M2 01/04/2025 10:31 AM [facility] GFR NOTES GFR REFERENCE S: 01/04/2025 10:31 AM CDT [facility] Comment: THE ESTIMATED GFR IS CALCULATED USING THE 2020 CKD-EPI EQUATION. THE FOLLOWING CATEGORIES FOR GRADING RENAL FUNCTION ARE RECOMMENDED BY THE INTERNATIONAL SOCIETY OF NEPHROLOGY (KDIGO 2012 CLINICAL PRACTICE GUIDELINE). G1,NORMAL OR HIGH: >89 ml/min/1.73 m2 G2,MILDLY DECREASED: 60-89 ml/min/1.73 m2 G3A,MILDLY TO MODERATELY DECREASED: 45-59 ml/min/1.73 m2 G3B,MODERATELY TO SEVERELY DECREASED: 30-44 ml/min/1.73 m2 G4,SEVERELY DECREASED: 15-29 ml/min/1.73 m2 G5,KIDNEY FAILURE: <15 ml/min/1.73 m2 01/03/2025 10:5 9 AM CDT Jesus Miller DO LABORATORY Final Re sult [facility] [address] [place] [address], * LIPID PANEL (01/03/2025 10:59 AM CDT) [facility] CHOLESTEROL 137 <200 MG/DL 01/04/2025 10:31 AM CDT [facility] TRIGLYCERIDES 74 <150 MG/DL 01/04/2025 10:31 AM CDT [facility] HDL 59 >40 MG/DL 01/04/2025 10:31 AM CDT [facility] LDL-C 63 <100 MG/DL 01/04/2025 10:31 AM CDT [facility] VLDL CALCULATION 15 5 - 28 MG/DL 01/04/2025 10:31 AM CDT [facility] CHOL/HDL RATIO 2.3 0.0 - 4.0 01/04/2025 10:31 AM CDT [facility] LDL/HDL 1.1 0.41 - 2.13 01/04/2025 10:31 AM CDT [facility] NON HDL CHOLESTEROL 78 <140 MG/DL 01/04/2025 10:31 AM CDT [facility] 01/03/2025 10:5 9 AM CDT Jesusgeovany Miller DO LABORATORY Final Re sult -[facility] [address] [place] [address], * (ABNORMAL) CBC W/DIFF AUTOMATED (01/03/2025 10:59 AM CDT) WBC 7.75 4.00 - 10.80 x10'3/uL 01/03/2025 7:59 PM CDT -[facility] RBC 4.16(L) 4.50 - 6.10 x10'6/uL 01/03/2025 7:59 PM CDT -[facility] HGB 12.7(L) 13.0 - 18.0 G/DL 01/03/2025 7:59 PM CDT -[facility] HCT 38.8 37.0 - 52.0 % 01/03/2025 7:59 PM CDT -[facility] MCV 93.3 78.0 - 100.0 FL 01/03/2025 7:59 PM CDT -[facility] MCH 30.5 27.0 - 31.0 PG 01/03/2025 7:59 PM CDT -[facility] MCHC 32.7(L) 33.0 - 36.0 G/DL 01/03/2025 7:59 PM CDT [facility] RDW 12.2 11.5 - 14.5 % 01/03/2025 7:59 PM CDT [facility] PLT 310 150 - 350 x10'3/uL 01/03/2025 7:59 PM CDT -[facility] MPV 10.4 7.4 - 10.4 FL 01/03/2025 7:59 PM CDT [facility] DIFFERENTIAL TYPE AUTOMATED DIFFERENTIAL 01/03/2025 7:59 PM CDT [facility] NEUTROPHILS % 82.5 % 01/03/2025 7:59 PM CDT [facility] LYMPHOCYTES % 8.3 % 01/03/2025 7:59 PM CDT [facility] MONOCYTES % 6.2 % 01/03/2025 7:59 PM CDT [facility] EOSINOPHILS % 2.1 % 01/03/2025 7:59 PM CDT [facility] BASOPHILS % 0.6 % 01/03/2025 7:59 PM CDT [facility] IMMATURE GRANS % 0.3 % 01/03/2025 7:59 PM CDT [facility] ABS. NEUTROPHILS 6.40 1.60 - 8.30 x10'3/uL 01/03/2025 7:59 PM CDT [facility] ABS. LYMPHOCYTES 0.64(L) 0.80 - 4.70 x10'3/uL 01/03/2025 7:59 PM CDT [facility] ABS. MONOCYTES 0.48 0.00 - 1.50 x10'3/uL 01/03/2025 7:59 PM CDT [facility] ABS. EOSINOPHILS 0.16 0.00 - 0.40 x10'3/uL 01/03/2025 7:59 PM CDT [facility] ABS. BASOPHILS 0.05 0.00 - 0.20 x10'3/uL 01/03/2025 7:59 PM CDT [facility] ABS. IMMATURE GRANULOCYTES 0.02 0.00 - 0.03 x10'3/uL 01/03/2025 7:59 PM CDT [facility] 01/03/2025 10:5 9 AM CDT Jesus Miller DO LABORATORY Final Re sult [facility] [address] [place] [address], [place] [phone] * PHOSPHORUS, INORGANIC PHOSPHATE (01/03/2025 10:59 AM CDT) PHOSPHORUS 4.1 2.6 - 4.7 MG/DL 01/04/2025 10:31 AM CDT [facility] 01/03/2025 10:5 9 AM CDT Jesus Miller DO LABORATORY Final Re sult Performing Organization Address [facility]/ZIP Co de Phone Number [id number] [place] [address], [place] [phone] * (ABNORMAL) VITAMIN D, 25 OH (01/03/2025 10:59 AM CDT) VITAMIN D 25 HYDROXY TOTAL S/P/B 29.1(L) 30 - 100 NG/ML 01/04/2025 10:31 AM CDT [facility] Comment: DEFICIENT <20 INSUFFICIENT 20-30 SUFFICIENT 30-100 01/03/2025 10:5 9 AM CDT Jesus Miller DO LABORATORY Final Re sult [id number] [place] [address], [place] [phone] * HEMOGLOBIN, GLYCOSYLATED (01/03/2025) HGB A1C 6.6 % [facility] 01/03/2025 Jesus Lubna Angelitafransico DO LABORATORY Final Re sult [facility] [address] [place] [address], [place] * BONE DENSITY GENERIC (SCAN ORDER) (12/21/2024) Only the most recent of3 resultswithin the time period is included. Anatomical Region Laterality Modality Other 12/21/2024 [employer] [facility] Scanned SCANNING Final Resu lt * DIABETIC RETINOPATHY EXAM (NEGATIVE) (10/26/2024) [facility] [facility] Scanned SCANNING Final Resu lt Performing Organization Address City/[facility] Co de Phone Number [facility] * COLOGUARD (EXACT SCIENCE) (04/28/2024 1:00 PM CDT) COLOGUARD RESULT Negative Negative [employer] (CLIA #:[id number]) Comment: NEGATIVE TEST RESULT. A negative Cologuard [...] (Diandra Flores al, N Engl J Med 2014;370(14):0301-9499) The normal value (reference range) for this assay is negative. COLOGUARD RE-SCREENING RECOMMENDATION: Periodic colorectal cancer screening is an important part of preventive healthcare for asymptomatic individuals at average risk for colorectal cancer. Following a negative Cologuard result, the [place] [employer] and U.S. Multi-Society Task Force screening guidelines recommend a Cologuard re-screening interval of 3 years. References: [place] [employer] Guideline for Colorectal Cancer Screening: https://www.cancer.org/cancer/tsygb-xrowmd-aadbsf/ivouxgmhj-brtsmmjxs-ugxfqor/ac s-rec ommendations.html.; Maikel WOOD, Pat LUNA, Devan PACHECO, Colorectal Cancer Screening: Recommendations for Physicians and Patients from the U.S. Multi-Society Task Force on Colorectal Cancer Screening , Am J Gastroenterology 2017; 112:0981-0496. TEST DESCRIPTION: Composite algorithmic analysis of stool [...] screened with both Cologuard and colonoscopy. (Diandra Jones et al, N Engl J Med 2014;370(14):2346-7242.) Cologuard may produce a false negative or false positive result (no colorectal cancer or precancerous polyp present at colonoscopy follow up). A negative Cologuard test result does not guarantee the absence of CRC or advanced adenoma (pre-cancer). The current Cologuard screening interval is every 3 years. ([place] [employer] and U.S. Multi-Society Task Force). Cologuard performance data in a 10,000 patient pivotal study using colonoscopy as the reference method can be accessed at the following location: www.[employer]/results. Additional description of the Cologuard test process, warnings and precautions can be found at www.cologuard.com. STOOL STOOL SPECIMEN / Unknown 04/28/2024 1:00 PM CDT 04/29/2024 10:05 AM CDT us Jesus Miller DO BODY FLUIDS AND STOOLS O RDERABLES Final Result Performing Organization Address [facility] Co de Phone Number [email or web address] ([employer] [address]) [address] [place] [address], [employer] (CLIA #:[id number]) [address] [place] [address] * HEPATITIS C ANTIBODY W/RFX TO HCV RNA ([facility] ONLY) (08/22/2022 3:05 PM GREETER) Pathologist [facility] HEPATITIS C AB 0.1 0.0 - 0.9 s/co ratio [facility] 1 INTERPRETATION Comment [facility] 1 Comment: Negative Not infected with HCV, unless recent infection is suspected or other evidence exists to indicate HCV infection. 08/22/2022 3:05 PM GREETER 08/22/2022 Narrative [facility] - 08/23/2022 8:14 AM GREETER Performed at: 01 - [facility] [address] [id number] Supervisor [employer]: Hayden Morton PhD, Phone: [phone] us Jesus Miller DO LABORATORY Final Re sult Performing Organization Address City/[facility] de Phone Number [facility] [address] [place] [address] [facility] 1 from Last 3 Months or Most Recently Relevant to Health Maintenance Insurance [employer] Advance Directives * Full Code (Latest Code Status on File) Date Activated Date Inactivated Comments 03/28/2019 10:07 PM 03/29/2019 11:33 PM Care Teams Director Speech Relationship Specialty Start Date End Date Jesus Miller DO [address] [place] [id number] PCP - General FAMILY PRACTICE 07/19/18
--- OUTSIDE RECORDS SUMMARY | 2025-03-20 14:40 | XMS_ITS ---
Author Organization [facility] [address] Address [address] [place] [address] Care Team Providers Care Creative Coordinator Name Role Phone Jesus Miller DO Primary [...] (03/29/2019): Added automatically from request for surgery [id number] Assessment & Plan (04/06/2019 7:10 PM CDT): As Jelani Rodriges is a 63 y.o. male with history of DM2 who presented with headaches, fever and confusion and found to have rim-enhancing lesion on the brain consistent with brain abscess. Had LP at OSH that showed pleocytosis and elevated protein level, with cultures NGTD. Was transferred to [facility] where he had brain abscess drainage with cultures showing Streptococcus intermedius, which is thomson susceptible. CT face without signs of sinus or dental infection. Unclear source of hematogenous spread. Contiguous spread from sinus, oropharyngeal and ear/mastoid ruled out. Currently on ceftriaxone and metronidazole. Slow clinical improvement. Afebrile with normal WBC. Will favor [facility] duration of minimal of 8 weeks. Plan: [...]
[2025-03-20 14:50] LABS: Estimated Glomerular Filt Rate > 60
== END 2025-03-20 14:30 | disposition home or self-care (01) ==
PROVIDERS: PCP Student in an Organized Health Care Education/Training Program; Visit Provider Urology
DX: C80.1 Malignant (primary) neoplasm, unspecified (principal); Z19.1 Hormone sensitive malignancy status
CPT/HCPCS: 74177; Q9967